=== PATIENT | female | born 1990 | race Caucasian/White ===

== ENCOUNTER 2018-01-02 23:25 | Emergency (ER) | payer SELFPAY ==
[2018-01-03] MEDS ORDERED: NA CHLORIDE 0.9% 1,000 ML ONE ×3 (00:13→07:53)
[2018-01-03 00:35] LABS: Absolute Lymphocytes (CBC) 1.3 K/uL (0.7-4.9); Absolute Monocytes 0.4 K/uL (0.1-1.3); Absolute Neutrophil 6.4 K/uL (1.8-8.0); Basophils % 0.7 % (0-1.3); Eosinophils % 0.9 % (0-4.4); Lymphocytes % 15.4 % (15.3-44.8); MCH 31.1 pg (27.0-35.0); MCV 95.8 fL (80-100); MPV 8.7 fL (7.6-11.3); RBC Red Blood Cell Count 1.81 M/uL (3.86-4.86)
[2018-01-03 00:37] LABS: Protime INR 1.6
[2018-01-03 00:51] LABS: Hematocrit 17.3 % (36.0-45.0)
[2018-01-03 01:06] LABS: ALT/SGPT 25 U/L (12-78); AST/SGOT 119 U/L (15-37); Albumin 2.2 g/dL (3.4-5.0); Alkaline Phosphatase 190 U/L (45-117); BUN Blood Urea Nitrogen 1 mg/dL (7-18); Bicarbonate 27 mmol/L (21-32); Bilirubin Direct 1.8 mg/dL (0-0.2); Bilirubin Total 2.4 mg/dL (0.2-1.0); Glucose Level 72 mg/dL (74-106); Lipase 144 U/L (73-393); Protein, Total 7.5 g/dL (6.4-8.2); Sodium Level 138 mmol/L (136-145)
[2018-01-03 01:08] LABS: Potassium 2.7 mmol/L (3.5-5.1)
[2018-01-03 02:02] LABS: Blood Morphology Comment NOTED (NOT SEEN); Platelet Estimate ADEQ; Urine White Blood Cell Casts OK
[2018-01-03 02:03] LABS: Anisocytosis 1+; Hypochromasia 1+; Polychromasia 1+
[2018-01-03] MEDS ORDERED: FAMOTIDINE 20 MG/2 ML VIAL IV ONE (02:10)
[2018-01-03] MEDS ORDERED: VITAMIN K (ADULT) 10 MG/ML ONE (02:10)
[2018-01-03] MEDS ORDERED: OCTREOTIDE ACETATE 100 MCG/ML ONE (02:15)
[2018-01-03 03:37] LABS: Magnesium 1.7 mg/dL (1.8-2.4)
--- NOTE | 2018-01-03 04:40 | EDPHYS ---
Physician Documentation [facility] Name: Lj Lay Age: 27 yrs Sex: Female : 1990 Arrival Date: 01/02/2018 Time: 23:31 Bed 17 Private MD: ED Physician Shlomo Devi HPI: 01/03 02:18 This 27 yrs old Female presents to ER via EMS with complaints of Abdominal gs Pain, Alcohol Abuse. 02:18 The patient presents with abdominal pain in the epigastric area, thinks it pancreatitis.gs 02:23 Onset: The symptoms/episode began/occurred yesterday. The symptoms do not radiate. gs Associated signs and symptoms: Pertinent positives: vomiting blood, x1 yesterday, Pertinent negatives:. The symptoms are described as crampy. Severity of pain: At its worst the pain was moderate in the emergency department the pain is unchanged. The patient has experienced similar episodes in the past, a few times. 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 - Social history:: Smoking status: Patient uses tobacco products, smokes one pack cigarettes per day. Patient uses alcohol, on a daily basis. patient/guardian reports chronic longstanding heavy alcohol consumption. Patient/guardian denies using street drugs, IV drugs. - Ebola Screening: : Patient denies exposure to infectious person Patient denies travel to an Ebola-affected area in the 21 days before illness onset. ROS: 01/03 02:23 All other systems are negative. gs Exam: 02:23 Constitutional: The patient appears alert, awake, jaundiced gs 04:37 Head/Face: Normocephalic, atraumatic. ENT: Nares patent. No nasal discharge, no gs septal abnormalities noted. Tympanic membranes are normal and external auditory canals are clear. Oropharynx with no redness, swelling, or masses, exudates, or evidence of obstruction, uvula midline. Mucous membranes moist. Neck: Trachea midline, no thyromegaly or masses palpated, and no cervical lymphadenopathy. Supple, full range of motion without nuchal rigidity, or vertebral point tenderness. No Meningismus. Chest/axilla: Normal chest wall appearance and motion. Nontender with no deformity. No lesions are appreciated. Respiratory: Lungs have equal breath sounds bilaterally, clear to auscultation and percussion. No rales, rhonchi or wheezes noted. No increased work of breathing, no retractions or nasal flaring. Back: No spinal tenderness. No costovertebral tenderness. Full range of motion. Skin: Warm, dry with normal turgor. Normal color with no rashes, no lesions, and no evidence of cellulitis. MS/ Extremity: Pulses equal, no cyanosis. Neurovascular intact. Full, normal range of motion. Neuro: Awake and alert, GCS 15, oriented to person, place, time, and situation. Cranial nerves II-XII grossly intact. Motor strength 5/5 in all extremities. Sensory grossly intact. Cerebellar exam normal. Normal gait. 04:37 Eyes: Sclera: icterus, is present. 04:37 Cardiovascular: Rate: tachycardic, Rhythm: regular, Pulses: no pulse deficits are appreciated, Heart sounds: normal, Edema: 1+ edema to level of left ankle and right ankle. 04:37 Abdomen/GI: Inspection: distension, that is mild, Palpation: nontender, in all quadrants. Vital Signs: 01/02 23:34 BP 123 / 88; Pulse 113; Resp 18; Temp 99.7; Pulse Ox 98% on R/A; Weight 90.72 kg; aa1 Height 5 ft. 7 in. (170.18 cm); Pain /10; 01/03 01:17 BP 109 / 63; Pulse 110; Resp 16 S; Pulse Ox 96% on R/A; jd3 02:49 BP 107 / 95; Pulse 107; Resp 19 S; Pulse Ox 97% on 2 lpm NC; jd3 03:49 BP 117 / 74; Pulse 105; Resp 18 S; Pulse Ox 96% on R/A; jd3 05:00 BP 136 / 91; Pulse 130; Resp 17 S; Pulse Ox 99% on R/A; jd3 05:45 BP 132 / 70; Pulse 123; Resp 18 S; Pulse Ox 99% on R/A; jd3 07:00 BP 131 / 93; Pulse 124; Resp 17; Temp 99.6; Pulse Ox 100% ; bp 08:35 BP 111 / 70; Pulse 109; Resp 17; Pulse Ox 98% on R/A; ss 09:15 BP 126 / 71; Pulse 107; Resp 14; Pulse Ox 98% ; bp 10:15 BP 122 / 56; Pulse 96; Resp 12; Pulse Ox 93% on 2 lpm NC; bp 10:55 BP 123 / 58; Pulse 92; Resp 14; Pulse Ox 94% ; bp 01/02 23:34 Body Mass Index 31.32 (90.72 kg, 170.18 cm) aa1 MDM: 01/02 23:41 Patient medically screened. 01/03 04:37 Differential diagnosis: gastritis, Peptic Ulcer Disease, Perf. Gastric Ulcer, bleeding, gs gi. Data reviewed: vital signs, nurses notes. 09:36 ED course: [facility] called, hospitalist wasn't aware of transfer or details, requested rn upgrade to ICU, spoke with Dr. Wallace who accepts transfer. . 01/02 23:53 Order name: Basic Metabolic Panel 01/02 23:53 Order name: CBC with Diff 01/02 23:53 Order name: Hepatic Function; Complete Time: 04:40 01/02 23:53 Order name: Lipase; Complete Time: 04:40 01/02 23:53 Order name: PT-INR; Complete Time: 01:16 01/02 23:53 Order name: ETOH Level; Complete Time: 01:16 01/02 23:54 Order name: Basic Metabolic Panel; Complete Time: 04:40 [facility] 01/02 23:54 Order name: CBC with Automated Diff; Complete Time: 02:08 [facility] 01/03 00:52 Order name: CBC Smear Scan; Complete Time: 02:08 [facility] 01/03 01:08 Order name: AMMONIA; Complete Time: 09:22 01/03 02:54 Order name: Type And Screen jd3 01/03 03:24 Order name: Packed RBC Leukored -1 [facility] 01/03 03:24 Order name: Magnesium; Complete Time: 04:40 [facility] 01/02 23:53 Order name: IV Saline Lock; Complete Time: 00:13 01/02 23:53 Order name: Labs collected and sent; Complete Time: 00:13 Administered Medications: 00:26 Drug: NS 0.9% 1000 ml Route: IV; Rate: 1 bolus; Site: right antecubital; jd3 02:35 Follow up: Response: No adverse reaction; IV Status: Completed infusion; IV Intake: jd3 1000ml 02:20 Drug: Octreotide 50 mcg Route: IV; Rate: calculated rate; Site: right antecubital; jd3 04:55 Follow up: Response: No adverse reaction; IV Status: Completed infusion jd3 02:20 Drug: Pepcid 20 mg Route: IVP; Site: right antecubital; jd3 04:55 Follow up: Response: No adverse reaction jd3 02:20 Drug: NS 0.9% 1000 ml Route: IV; Rate: 125 ml/hr; Site: right antecubital; jd3 07:00 Follow up: IV Status: Completed infusion; IV Intake: 800ml bp 02:20 Drug: Vitamin K1 10 mg Route: Sub-Q; Site: abdomen; jd3 04:55 Follow up: Response: No adverse reaction jd3 04:53 Drug: Potassium Effervescent Tablet 25 mEq Route: PO; jd3 06:09 Follow up: Response: No adverse reaction jd3 04:53 Drug: Magnesium Sulfate 1 grams Route: IVPB; Infused Over: 1 hrs; Site: right [facility] antecubital; 07:00 Follow up: IV Status: Completed infusion; IV Intake: 100ml bp 07:15 Drug: LORazepam 1 mg Route: IVP; Site: right hand; bp 07:54 Follow up: Response: Anxiety decreased bp 07:52 Drug: NS 0.9% 1000 ml Route: IV; Rate: 1 bolus; Site: right hand; bp 09:10 Follow up: IV Status: Completed infusion; IV Intake: 1000ml bp 07:53 Drug: Ativan 1 mg Route: IVP; Site: right antecubital; bp 07:54 Follow up: Response: Anxiety decreased bp 08:45 Drug: ProTONIX 40 mg Route: IVP; Site: right hand; ss 09:10 Follow up: Response: No adverse reaction bp 09:15 Drug: ProTONIX 8 mg/hr Route: IV; Rate: 25 ml/hr; Site: right hand; bp 10:15 Follow up: IV Status: Infusion continued upon transfer bp 09:15 Drug: Octreotide Infusion (50 mcg/hr) - (Octreotide 500 mcg, NS 0.9% 500 ml) Route: IV; bp Rate: 50 ml/hr; Site: right antecubital; 10:15 Follow up: IV Status: Infusion continued upon transfer bp 09:30 Drug: Rocephin - (cefTRIAXone) 1 grams Route: IVPB; Infused Over: 30 mins; Site: right bp antecubital; 10:00 Follow up: IV Status: Completed infusion; IV Intake: 100ml bp Disposition: 01/03/18 04:[address] [facility]. Diagnosis are Gastrointestinal hemorrhage, unspecified, Alcoholic cirrhosis of liver without ascites. - Reason for transfer: Higher level of care. - Accepting physician is Dr. Wallace. - Condition is Stable. - Problem is new. - Symptoms have improved. Signatures: Dispatcher [employer] EDFL Theresa Velasco, RN RN aa1 Shlomo Devi MD MD rn Smirch, Shelby, RN RN ss Kb Carver MD MD gs Davies, Jonathon, RN RN jd3 Anup Marsh RN RN bp Corrections: (The following items were deleted from the chart) 03:24 01:09 MAGNESIUM+C.LAB.BRZ ordered. [facility] EDFL 09:36 04:40 01/03/2018 04:[address] [facility]. Diagnosis is rn Gastrointestinal hemorrhage, unspecified; Alcoholic cirrhosis of liver without ascites. Reason for transfer: Higher level of care. Accepting physician is tbd. Condition is Stable. Problem is new. Symptoms have improved. 11:36 09:36 01/03/2018 04:[address] [facility]. Diagnosis is bp Gastrointestinal hemorrhage, unspecified; Alcoholic cirrhosis of liver without ascites. Reason for transfer: Higher level of care. Accepting physician is Dr. Wallace. Condition is Stable. Problem is new. Symptoms have improved. rn
--- NOTE | 2018-01-03 04:40 | ER ---
Nurse's Notes [facility] Name: Lj Lay Age: 27 yrs Sex: Female : 1990 Arrival Date: 01/02/2018 Time: 23:31 Bed 17 Private MD: Diagnosis: Gastrointestinal hemorrhage, unspecified;Alcoholic cirrhosis of liver without ascites Presentation: 01/02 23:34 Presenting complaint: Patient states: she has pancreatitis and has been having upper aa1 abd pain for years now and she wants help to stop drinking. Denies thoughts of harming herself or others. [facility] reports pt called a help line earlier today and a police superintendent and 2 hat finisher from [place] responded. Reports that pt stated that the officer and hat finisher that initially responded were making fun of her and made her feel uncomfortable which is why she decided not to come to be evaluated at that time. [facility] [place][note 2] reports they spoke with the officer that initially responded and reports that pt told them as well that she did not have any thoughts of harming herself or others and just wanted help to stop drinking. Pt reports drinking whiskey today and smells of ETOH. Lesions noted to BUE. Transition of care: patient was not received from another setting of care. Onset of symptoms was 2010. Risk Assessment: Do you want to hurt yourself or someone else? Patient reports no desire to harm self or others. Initial Sepsis Screen: Does the patient meet any 2 criteria? HR > 90 bpm. Does the patient have a suspected source of infection? No. Patient's initial sepsis screen is negative. Care prior to arrival: None. 23:34 Method Of Arrival: EMS: [facility] aa1 23:34 Acuity: LAMB[place] 3 aa1 Triage Assessment: 23:34 General: Appears in no apparent distress. comfortable, Behavior is calm, cooperative, aa1 appropriate for age, Smells of alcohol. 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 - Social history:: Smoking status: Patient uses tobacco products, smokes one pack cigarettes per day. Patient uses alcohol, on a daily basis. patient/guardian reports chronic longstanding heavy alcohol consumption. Patient/guardian denies using street drugs, IV drugs. - Ebola Screening: : Patient denies exposure to infectious person Patient denies travel to an Ebola-affected area in the 21 days before illness onset. Screenin:34 Abuse screen: Denies threats or abuse. Nutritional screening: No deficits noted. jd3 Tuberculosis screening: No symptoms or risk factors identified. Fall Risk Ambulatory Aid- None/Bed Rest/Nurse Assist (0 pts). Gait- Normal/Bed Rest/Wheelchair (0 pts) Mental Status- Oriented to own ability (0 pts). Total [place] Fall Scale indicates No Risk (0-24 pts). Assessment: 23:31 General: Appears uncomfortable, Behavior is calm, cooperative, appropriate for age, jd3 Smells of alcohol. Pain: Complains of pain in abdomen Quality of pain is described as aching, crampy. Neuro: Level of Consciousness is awake, alert, obeys commands, Oriented to person, place, time, situation, Appropriate for age. Cardiovascular: Capillary refill < 3 seconds Patient's skin is warm and dry. Respiratory: Airway is patent Respiratory effort is even, unlabored, Respiratory pattern is regular, symmetrical, Breath sounds are clear bilaterally. GI: Abdomen is round non-distended, Bowel sounds present X 4 quads. Abd is soft and non tender X 4 quads. Reports lower abdominal pain, upper abdominal pain, nausea, vomiting. : No signs and/or symptoms were reported regarding the genitourinary system. EENT: No signs and/or symptoms were reported regarding the EENT system. Derm: Skin is intact, Skin is dry, Skin is jaundiced, Skin temperature is warm. Musculoskeletal: Circulation, motion, and sensation intact. Range of motion: intact in all extremities. 01/03 00:30 Reassessment: Patient appears in no apparent distress at this time. Patient and/or jd3 family updated on plan of care and expected duration. Pain level reassessed. Patient is alert, oriented x 3, equal unlabored respirations, skin warm/dry/pink. 01:16 Reassessment: Patient appears in no apparent distress at this time. Patient and/or jd3 family updated on plan of care and expected duration. Pain level reassessed. Patient is alert, oriented x 3, equal unlabored respirations, skin warm/dry/pink. 02:49 Reassessment: Patient appears in no apparent distress at this time. Patient and/or jd3 family updated on plan of care and expected duration. Pain level reassessed. Patient is alert, oriented x 3, equal unlabored respirations, skin warm/dry/pink. 03:48 Reassessment: Patient appears in no apparent distress at this time. Patient and/or jd3 family updated on plan of care and expected duration. Pain level reassessed. Patient is alert, oriented x 3, equal unlabored respirations, skin warm/dry/pink. pt requesting for family to be at bedside before signing blood consent. awaiting families arrival. 04:45 Reassessment: Patient appears in no apparent distress at this time. Patient and/or jd3 family updated on plan of care and expected duration. Pain level reassessed. Patient is alert, oriented x 3, equal unlabored respirations, skin warm/dry/pink. 05:35 Reassessment: blood administration started, see blood administration flow sheet. jd3 05:45 Reassessment: Patient appears in no apparent distress at this time. Patient and/or jd3 family updated on plan of care and expected duration. Pain level reassessed. Patient is alert, oriented x 3, equal unlabored respirations, skin warm/dry/pink. 07:00 Reassessment: RECD REPORT FROM LUANNE WING. 27YO WF P/W ETOH ABUSE AND HEMATEMESIS. bp PRBC INFUSION IN PROCESS, TRANFER TO [facility] PENDING. ST ON MONITOR, + ANXIETY. 08:30 Reassessment: PRBC COMPLETED. VS IMPROVED, TRANSFER PENDING. bp 10:54 Reassessment: REPORT TO TIFFANI WING AT [facility]. TRANSPORT PENDING. bp 11:09 Reassessment: EMS AT B/S FOR TRANSPORT. bp Vital Signs: 01/02 23:34 BP 123 / 88; Pulse 113; Resp 18; Temp 99.7; Pulse Ox 98% on R/A; Weight 90.72 kg; aa1 Height 5 ft. 7 in. (170.18 cm); Pain 8/10; 01/03 01:17 BP 109 / 63; Pulse 110; Resp 16 S; Pulse Ox 96% on R/A; jd3 02:49 BP 107 / 95; Pulse 107; Resp 19 S; Pulse Ox 97% on 2 lpm NC; jd3 03:49 BP 117 / 74; Pulse 105; Resp 18 S; Pulse Ox 96% on R/A; jd3 05:00 BP 136 / 91; Pulse 130; Resp 17 S; Pulse Ox 99% on R/A; jd3 05:45 BP 132 / 70; Pulse 123; Resp 18 S; Pulse Ox 99% on R/A; jd3 07:00 BP 131 / 93; Pulse 124; Resp 17; Temp 99.6; Pulse Ox 100% ; bp 08:35 BP 111 / 70; Pulse 109; Resp 17; Pulse Ox 98% on R/A; ss 09:15 BP 126 / 71; Pulse 107; Resp 14; Pulse Ox 98% ; bp 10:15 BP 122 / 56; Pulse 96; Resp 12; Pulse Ox 93% on 2 lpm NC; bp 10:55 BP 123 / 58; Pulse 92; Resp 14; Pulse Ox 94% ; bp 01/02 23:34 Body Mass Index 31.32 (90.72 kg, 170.18 cm) aa1 ED Course: 01/02 23:31 Patient arrived in ED. jd3 23:33 Patient has correct armband on for positive identification. Placed in gown. Bed in low jd3 position. Call light in reach. Side rails up X 1. 23:35 Kb Carver MD is Attending Physician. gs 23:40 Triage completed. aa1 23:40 Jean Claude Ospina RN is Primary Nurse. jd3 23:40 Arm band placed on. jd3 01/03 00:10 Inserted saline lock: 22 gauge in right antecubital area, using aseptic technique. ds4 Blood collected. 00:13 Lipase Sent. ds4 00:13 Hepatic Function Sent. ds4 00:13 CBC with Diff Sent. ds4 00:13 Basic Metabolic Panel Sent. ds4 00:13 PT-INR Sent. ds4 00:13 ETOH Level Sent. ds4 00:13 Basic Metabolic Panel Sent. ds4 00:13 CBC with Automated Diff Sent. ds4 01:08 Notified ED physician of a critical lab result(s). potassium of 2.7 Dr Carver notified. bb 04:31 Warm blanket given. jd3 07:10 Report given to Anup WING. jd3 07:15 Inserted saline lock: 20 gauge in right hand, using aseptic technique. bp 07:34 Primary Nurse role handed off by Jean Claude Ospina RN bp 07:34 Anup Marsh, RN is Primary Nurse. bp 09:51 Attending Physician role handed off by Kb Carver MD rn 09:51 Shlomo Devi MD is Attending Physician. rn 10:19 No provider procedures requiring assistance completed. Patient transferred, IV remains bp in place. 10:31 Report given to TIFFANI WING, [facility], [address] [place] [address], BED 7214. bp Administered Medications: 00:26 Drug: NS 0.9% 1000 ml Route: IV; Rate: 1 bolus; Site: right antecubital; jd3 02:35 Follow up: Response: No adverse reaction; IV Status: Completed infusion; IV Intake: jd3 1000ml 02:20 Drug: Octreotide 50 mcg Route: IV; Rate: calculated rate; Site: right antecubital; jd3 04:55 Follow up: Response: No adverse reaction; IV Status: Completed infusion jd3 02:20 Drug: Pepcid 20 mg Route: IVP; Site: right antecubital; jd3 04:55 Follow up: Response: No adverse reaction jd3 02:20 Drug: NS 0.9% 1000 ml Route: IV; Rate: 125 ml/hr; Site: right antecubital; jd3 07:00 Follow up: IV Status: Completed infusion; IV Intake: 800ml bp 02:20 Drug: Vitamin K1 10 mg Route: Sub-Q; Site: abdomen; jd3 04:55 Follow up: Response: No adverse reaction jd3 04:53 Drug: Potassium Effervescent Tablet 25 mEq Route: PO; jd3 06:09 Follow up: Response: No adverse reaction jd3 04:53 Drug: Magnesium Sulfate 1 grams Route: IVPB; Infused Over: 1 hrs; Site: right jd3 antecubital; 07:00 Follow up: IV Status: Completed infusion; IV Intake: 100ml bp 07:15 Drug: LORazepam 1 mg Route: IVP; Site: right hand; bp 07:54 Follow up: Response: Anxiety decreased bp 07:52 Drug: NS 0.9% 1000 ml Route: IV; Rate: 1 bolus; Site: right hand; bp 09:10 Follow up: IV Status: Completed infusion; IV Intake: 1000ml bp 07:53 Drug: Ativan 1 mg Route: IVP; Site: right antecubital; bp 07:54 Follow up: Response: Anxiety decreased bp 08:45 Drug: ProTONIX 40 mg Route: IVP; Site: right hand; ss 09:10 Follow up: Response: No adverse reaction bp 09:15 Drug: ProTONIX 8 mg/hr Route: IV; Rate: 25 ml/hr; Site: right hand; bp 10:15 Follow up: IV Status: Infusion continued upon transfer bp 09:15 Drug: Octreotide Infusion (50 mcg/hr) - (Octreotide 500 mcg, NS 0.9% 500 ml) Route: IV; bp Rate: 50 ml/hr; Site: right antecubital; 10:15 Follow up: IV Status: Infusion continued upon transfer bp 09:30 Drug: Rocephin - (cefTRIAXone) 1 grams Route: IVPB; Infused Over: 30 mins; Site: right bp antecubital; 10:00 Follow up: IV Status: Completed infusion; IV Intake: 100ml bp Intake: 02:35 IV: 1000ml; Total: 1000ml. jd3 07:00 IV: 800ml; Total: 1800ml. bp 07:00 IV: 100ml; Total: 1900ml. bp 09:10 IV: 1000ml; Total: 2900ml. bp 10:00 IV: 100ml; Total: 3000ml. bp Outcome: 04:40 ER care complete, transfer ordered by MD. gs 10:20 Condition: stable bp 10:20 Instructed on the need for transfer. 10:32 Transferred to [facility], Transfer form completed. bp 11:36 Patient left the ED. bp Signatures: Theresa Velasco RN RN aa1 Nola Prescott RN RN bb Shlomo Devi MD MD rn Smirch, Shelby, RN RN ss Demetrio Zhong ds4 Kb Carver MD MD gs Davies, Jonathon, RN RN jd3 Anup Marsh RN RN bp Corrections: (The following items were deleted from the chart) 01:17 01/02 23:31 General: Appears uncomfortable, Behavior is calm, cooperative, appropriate jd3 for age, jd3 01/03 01:17 01/02 23:31 Derm: Skin is intact, Skin is dry, Skin is normal, Skin temperature is warm jd3 jd3 01/03 03:50 03:48 Reassessment: Patient appears in no apparent distress at this time. Patient jd3 and/or family updated on plan of care and expected duration. Pain level reassessed. Patient is alert, oriented x 3, equal unlabored respirations, skin warm/dry/pink. jd3
[2018-01-03] MEDS ORDERED: POTASSIUM 25 MEQ EFFERV TAB ONE (04:54)
[2018-01-03] MEDS ORDERED: MAGNESIUM SULFATE 1 gm IVPB 1 GM/100 ML BAG IV ONE (04:55)
[2018-01-03] MEDS ORDERED: NA CHLORIDE 0.9% 250 ML ONE (05:18)
[2018-01-03] MEDS ORDERED: LORazepam 2 MG/ML VIAL ONE ×2 (07:18→07:53)
[2018-01-03] MEDS ORDERED: PANTOPRAZOLE 40 MG INJ ONE (08:48)
[2018-01-03] MEDS ORDERED: PANTOPRAZOLE INJ 80 MG in NA CHLORIDE 0.9% 250 ML IV ONE (09:00)
[2018-01-03] MEDS ORDERED: OCTREOTIDE 500 MCG in NA CHLORIDE 0.9% 500 ML IV ONE (09:00)
[2018-01-03] MEDS ORDERED: NA CHLORIDE 0.9% 100 ML IV ONE (09:50)
[2018-01-03] MEDS ORDERED: CEFTRIAXONE 1000 MG/VIAL ONE (09:50)
== END 2018-01-03 11:36 | disposition short-term general hospital (02) ==
LOC: ER 23:25
DX: K92.2 Gastrointestinal hemorrhage, unspecified (principal); K70.30 Alcoholic cirrhosis of liver without ascites; F17.210 Nicotine dependence, cigarettes, uncomplicated
CPT/HCPCS: 36415; 80048; 80076; 80320; 82140; 83690; 83735; 85025; 85610; 86850; 86900; 86901; 96372; 99285; C9113; J2354; J3430; J3475; J7030; P9016

== ENCOUNTER 2018-01-24 16:38 | Emergency (ER) | payer SELFPAY ==
--- OUTSIDE RECORDS SUMMARY | 2018-01-24 16:42 | XMS REPORT | Clinical Summary ---
:1990 Author Organization [facility] Address [address] [place] [address] Care Team Providers Name Role Phone Pcp, No Primary Care Provider Unavailable Allergies No Known Allergies Medications Medication Sig Dispensed Refills Start Date End Date Status folic acid Take 1 mg by 0 Active (FOLVITE) 1 MG mouth daily. tablet HYDROcodone-acetam Take 1 tablet 30 tablet 0 01/08/2018 Active inophen (NORCO by mouth every 10-325) 10-325 mg 8 (eight) hours per tablet as needed for up to 10 doses. Max Daily Amount: [address] 1 patch 30 patch 0 01/08/2018 02/07/2018 Active (LIDODERM) 5 % onto the skin patch daily for 30 days Remove & Discard patch within 12 hours or as directed by MD. multivitamin Take 1 tablet 30 tablet 11 01/09/2018 01/09/2019 Active (THERAGRAN) tablet by mouth daily. nicotine (NICODERM Place 1 patch 30 patch 0 01/09/2018 02/08/2018 Active CQ) 21 mg/24 hr onto the skin patch daily for 30 days. thiamine 100 MG Take 1 tablet 90 tablet 3 01/09/2018 01/09/2019 Active tablet (100 mg total) by mouth daily. LORazepam (ATIVAN) Take 1 tablet 10 tablet 0 01/08/2018 Active 1 MG tablet (1 mg total) by mouth every 8 (eight) hours as needed for Anxiety for up to 10 doses. Max Daily Amount: 3 mg LORazepam (ATIVAN) Take 1 tablet 30 tablet 0 01/08/2018 01/08/2018 Discontinued 1 MG tablet (1 mg total) by mouth every 8 (eight) hours as needed for Anxiety for up to 10 doses. Max Daily Amount: 3 mg neomycin-bacitraci Apply topically 60 g 0 01/08/2018 01/18/2018 n-polymyxin 2 (two) times (NEOSPORIN) daily for 10 3.5mg-400 unit- days. 5,000 unit/gram ointment Active Problems Problem Noted Date ETOH abuse 01/05/2018 Tobacco abuse 01/05/2018 GIB (gastrointestinal bleeding) 01/03/2018 Anemia associated with acute blood loss 01/03/2018 Alcoholic hepatitis without ascites 01/03/2018 Hematemesis 01/03/2018 Encounters Date Type Specialty Care Team Description 01/08/2018 Surgery Gastroenterology Tanesha Earl UPPER ENDOSCOPY MD [place] 01/08/2018 Anesthesia Event Gastroenterology Suki Spann CRNA 01/03/2018 [facility] [place], Anemia associated with acute blood loss; - Encounter Medicine Duane Alcoholic hepatitis without ascites; 01/08/2018 MD Pio Gastrointestinal hemorrhage with hematemesis; Pablo Broderick, Thrombocytopenia (HCC); Alcohol withdrawal syndrome without complication (HCC); Avelino Goode MD ETOH abuse; Rectal bleeding 01/03/2018 Travel 01/03/2018 Telephone Critical Care Medicine Rodrigo, Ayvp-ii-Iqik Call Duane Suero MD 01/03/2018 Telephone Gastroenterology Tanesha Earl Abdominal Pain MD Bernadine after 01/23/2017 Social History Tobacco Use Types Packs/Day Years Used Date Current Every Day Smoker Cigarettes 0.5 13 Started: 2004 Smokeless Tobacco: Current User Tobacco Cessation: Ready to Quit: No; Counseling Given: No Alcohol Use Drinks/Week oz/Week Comments Yes Alcohol Habits Answer Date Recorded How often do you have a drink containing 4 or more times a week 01/03/2018 alcohol? How many drinks containing alcohol do you have Not asked on a typical day when you are drinking? How often do you have six or more drinks on one Weekly 01/03/2018 occasion? Financial Resource Strain Answer Date Recorded How hard is it for you to pay for the very basics like food, Very hard 2017 housing, medical care, and heating? Food Insecurity Answer Date Recorded Within the past 12 months, you worried that your food would Often true 2017 run out before you got money to buy more. Within the past 12 months, the food you bought just didn't Often true 2017 last and you didn't have money to get more. Transportation Needs Answer Date Recorded In the past 12 months, has lack of transportation kept you from Yes 2017 medical appointments or from getting medications? In the past 12 months, has lack of transportation kept you from Yes 2017 meetings, work, or getting things needed for daily living? Sex Assigned at Date Recorded Not on file Job Start Date Occupation Industry Not on file Not on file Not on file Travel History Travel Start Travel End No recent travel history available. Last Filed Vital Signs Vital Sign Reading Time Taken Blood Pressure 118/75 01/08/2018 5:29 PM DISTRICT AGENT Pulse 109 01/08/2018 5:29 PM DISTRICT AGENT Temperature 37.1 C (98.7 F) 01/08/2018 5:29 PM DISTRICT AGENT Respiratory Rate 19 01/08/2018 5:29 PM DISTRICT AGENT Oxygen Saturation 96% 01/08/2018 5:29 PM DISTRICT AGENT Inhaled Oxygen Concentration - - Weight 71.2 kg (157 lb) 01/06/2018 4:56 AM DISTRICT AGENT Height 170.2 cm (5' 7") 01/03/2018 1:45 PM DISTRICT AGENT Body Mass Index 24.59 01/06/2018 4:56 AM DISTRICT AGENT Plan of Treatment Not on file Procedures Procedure Name Priority Date/Time Associated Diagnosis Comments RHYTHM STRIP - SCAN 01/12/2018 12:10 PM DISTRICT AGENT COLONOSCOPY 01/08/2018 5:04 Gastrointestinal PM DISTRICT AGENT hemorrhage, unspecified gastrointestinal hemorrhage type UPPER ENDOSCOPY 01/08/2018 5:04 Gastrointestinal PM DISTRICT AGENT hemorrhage, unspecified gastrointestinal hemorrhage type REPORT OF PROCEDURE - 01/08/2018 4:20 ENDOSCOPY URL PM DISTRICT AGENT REPORT OF PROCEDURE - 01/08/2018 4:14 ENDOSCOPY URL PM DISTRICT AGENT POCT-GLUCOSE METER Routine 01/08/2018 3:34 Results for this PM DISTRICT AGENT procedure are in the results section. POCT-GLUCOSE METER Routine 01/08/2018 1:17 Results for this PM DISTRICT AGENT procedure are in the results section. PHOSPHORUS Routine 01/08/2018 8:50 Results for this AM DISTRICT AGENT procedure are in the results section. BILIRUBIN, DIRECT Routine 01/08/2018 8:50 Results for this AM DISTRICT AGENT procedure are in the results section. COMPREHENSIVE Routine 01/08/2018 8:50 Results for this METABOLIC PANEL AM DISTRICT AGENT procedure are in the results section. POCT-GLUCOSE METER Routine 01/08/2018 6:42 Results for this AM DISTRICT AGENT procedure are in the results section. CBC W/PLT COUNT & Routine 01/08/2018 6:19 Results for this AUTO DIFFERENTIAL AM DISTRICT AGENT procedure are in the results section. CBC W/PLT COUNT & Routine 01/08/2018 6:19 Results for this AUTO DIFFERENTIAL AM DISTRICT AGENT procedure are in the results section. POCT-GLUCOSE METER Routine 01/07/2018 6:59 Results for this PM DISTRICT AGENT procedure are in the results section. POCT-GLUCOSE METER Routine 01/07/2018 1:37 Results for this PM DISTRICT AGENT procedure are in the results section. CBC W/PLT COUNT & Routine 01/07/2018 9:17 Results for this AUTO DIFFERENTIAL AM DISTRICT AGENT procedure are in the results section. CBC W/PLT COUNT & Routine 01/07/2018 9:17 Results for this AUTO DIFFERENTIAL AM DISTRICT AGENT procedure are in the results section. PHOSPHORUS Routine 01/07/2018 9:17 Results for this AM DISTRICT AGENT procedure are in the results section. BILIRUBIN, DIRECT Routine 01/07/2018 9:17 Results for this AM DISTRICT AGENT procedure are in the results section. COMPREHENSIVE Routine 01/07/2018 9:17 Results for this METABOLIC PANEL AM DISTRICT AGENT procedure are in the results section. POCT-GLUCOSE METER Routine 01/06/2018 11:27 Results for this AM DISTRICT AGENT procedure are in the results section. CBC W/PLT COUNT & Routine 01/06/2018 5:07 Results for this AUTO DIFFERENTIAL AM DISTRICT AGENT procedure are in the results section. CBC W/PLT COUNT & Routine 01/06/2018 5:07 Results for this AUTO DIFFERENTIAL AM DISTRICT AGENT procedure are in the results section. PHOSPHORUS Routine 01/06/2018 5:07 Results for this AM DISTRICT AGENT procedure are in the results section. BILIRUBIN, DIRECT Routine 01/06/2018 5:07 Results for this AM DISTRICT AGENT procedure are in the results section. PROTHROMBIN TIME/INR Routine 01/06/2018 5:07 Results for this AM DISTRICT AGENT procedure are in the results section. COMPREHENSIVE Routine 01/06/2018 5:07 Results for this METABOLIC PANEL AM DISTRICT AGENT procedure are in the results section. TRANSFUSION SERVICE 01/05/2018 6:02 REPORT - SCAN PM DISTRICT AGENT POCT-GLUCOSE METER Routine 01/05/2018 12:19 Results for this PM DISTRICT [facility]ENT procedure are in the results section. POCT-GLUCOSE METER Routine 01/05/2018 5:59 Results for this AM DISTRICT AGENT procedure are in the results section. CBC W/PLT COUNT & Routine 01/05/2018 4:21 Results for this AUTO DIFFERENTIAL AM DISTRICT AGENT procedure are in the results section. CBC W/PLT COUNT & Routine 01/05/2018 4:21 Results for this AUTO DIFFERENTIAL AM DISTRICT AGENT procedure are in the results section. PHOSPHORUS Routine 01/05/2018 4:21 Results for this AM DISTRICT AGENT procedure are in the results section. BILIRUBIN, DIRECT Routine 01/05/2018 4:21 Results for this AM DISTRICT AGENT procedure are in the results section. PROTHROMBIN TIME/INR Routine 01/05/2018 4:21 Results for this AM DISTRICT AGENT procedure are in the results section. COMPREHENSIVE Routine 01/05/2018 4:21 Results for this METABOLIC PANEL AM DISTRICT [facility]ENT procedure are in the results section. POCT-GLUCOSE METER Routine 01/05/2018 12:24 Results for this AM DISTRICT [facility]ENT procedure are in the results section. PREPARE LEUKO-REDUCED Routine 01/04/2018 11:55 Results for this RBC PM DISTRICT [facility]ENT procedure are in the results section. TRANSFUSION SERVICE 01/04/2018 6:03 REPORT - SCAN PM DISTRICT AGENT POCT-GLUCOSE METER Routine 01/04/2018 5:58 Results for this PM DISTRICT [facility]ENT procedure are in the results section. MAGNESIUM Routine 01/04/2018 5:03 Results for this PM DISTRICT [facility]ENT procedure are in the results section. POTASSIUM Routine 01/04/2018 5:03 Results for this PM [facility] procedure are in the results section. CBC W/PLT COUNT & STAT 01/04/2018 4:03 Results for this AUTO DIFFERENTIAL PM DISTRICT [facility]ENT procedure are in the results section. VITAMIN B12 AND Routine 01/04/2018 4:03 Results for this FOLATE PM DISTRICT [facility]ENT procedure are in the results section. MAGNESIUM Routine 01/04/2018 4:03 Results for this PM [facility] procedure are in the results section. CBC W/PLT COUNT & STAT 01/04/2018 4:03 Results for this AUTO DIFFERENTIAL PM DISTRICT [facility]ENT procedure are in the results section. URINALYSIS W/ REFLEX Routine 01/04/2018 4:02 Results for this URINE CULTURE PM DISTRICT [facility]ENT procedure are in the results section. POCT-GLUCOSE METER Routine 01/04/2018 11:28 Results for this AM DISTRICT [facility]ENT procedure are in the results section. RAPID DRUG SCREEN, Routine 01/04/2018 8:40 Results for this URINE AM DISTRICT [facility]ENT procedure are in the results section. SCREEN, Routine 01/04/2018 8:38 Results for this URINE AM DISTRICT [facility]ENT procedure are in the results section. POCT-GLUCOSE METER Routine 01/04/2018 5:56 Results for this AM DISTRICT [facility]ENT procedure are in the results section. CBC W/PLT COUNT & STAT 01/04/2018 3:46 Results for this AUTO DIFFERENTIAL AM DISTRICT [facility]ENT procedure are in the results section. MAGNESIUM Routine 01/04/2018 3:46 Results for this AM DISTRICT [facility] procedure are in the results section. CBC W/PLT COUNT & STAT 01/04/2018 3:46 Results for this AUTO DIFFERENTIAL AM DISTRICT [facility]ENT procedure are in the results section. HEPATITIS A ANTIBODY, Routine 01/04/2018 3:46 Results for this IGM AM DISTRICT [facility]ENT procedure are in the results section. HEPATITIS A ANTIBODY, Routine 01/04/2018 3:46 Results for this IGG AM DISTRICT [facility]ENT procedure are in the results section. HEPATITIS B SURFACE Routine 01/04/2018 3:46 Results for this ANTIGEN AM [facility]ENT procedure are in the results section. HEPATITIS B SURFACE Routine 01/04/2018 3:46 Results for this ANTIBODY AM DISTRICT [facility]ENT procedure are in the results section. HEPATITIS B CORE Routine 01/04/2018 3:46 Results for this ANTIBODY, TOTAL AM [facility] procedure are in the results section. HEPATITIS C ANTIBODY Routine 01/04/2018 3:46 Results for this AM DISTRICT [facility] procedure are in the results section. PROTHROMBIN TIME/INR Routine 01/04/2018 3:46 Results for this AM DISTRICT [facility] procedure are in the results section. COMPREHENSIVE Routine 01/04/2018 3:46 Results for this METABOLIC PANEL AM DISTRICT [facility]ENT procedure are in the results section. CBC W/PLT COUNT & STAT 01/04/2018 12:06 Results for this AUTO DIFFERENTIAL AM DISTRICT [facility]ENT procedure are in the results section. CBC W/PLT COUNT & STAT 01/04/2018 12:06 Results for this AUTO DIFFERENTIAL AM DISTRICT [facility]ENT procedure are in the results section. POCT-GLUCOSE METER Routine 01/03/2018 11:42 Results for this PM [facility] procedure are in the results section. TRANSFUSE Routine 01/03/2018 7:35 LEUKO-REDUCED RED PM DISTRICT [facility]ENT BLOOD CELLS POCT-GLUCOSE METER Routine 01/03/2018 6:27 Results for this PM [facility] procedure are in the results section. US ABDOMEN LIMITED GRADY 01/03/2018 2:45 Results for this PM [facility] procedure are in the results section. CBC W/PLT COUNT & STAT 01/03/2018 1:37 Results for this AUTO DIFFERENTIAL PM [facility]ENT procedure are in the results section. TYPE AND SCREEN, Routine 01/03/2018 1:37 Results for this AUTOMATED PM [facility] procedure are in the results section. MAGNESIUM STAT 01/03/2018 1:37 Results for this PM [facility] procedure are in the results section. PT/APTT STAT 01/03/2018 1:37 Results for this PM [facility] procedure are in the results section. LIPASE STAT 01/03/2018 1:37 Results for this PM [facility] procedure are in the results section. COMPREHENSIVE STAT 01/03/2018 1:37 Results for this METABOLIC PANEL PM [facility]ENT procedure are in the results section. CBC W/PLT COUNT & STAT 01/03/2018 1:37 Results for this AUTO DIFFERENTIAL PM [facility]ENT procedure are in the results section. after 01/23/2017 Results RHYTHM STRIP - SCAN (01/12/2018 12:10 PM DISTRICT AGENT) Narrative Performed At REPORT OF PROCEDURE - ENDOSCOPY URL (01/08/2018 4:20 PM DISTRICT AGENT) Narrative Performed At REPORT OF PROCEDURE - ENDOSCOPY URL (01/08/2018 4:14 PM DISTRICT AGENT) Narrative Performed At POC-Glucose meter (01/08/2018 3:34 PM DISTRICT AGENT)Only the most recent of14 resultswithin the time period is included. POC-Glucose Meter 87Comment: TESTED AT 70 - 110 mg/dL [address] [address] Specimen Blood Performing Organization Address [facility] Phone Number [address] [address] CENTER Phosphorus (01/08/2018 8:50 AM DISTRICT AGENT)Only the most recent of4 resultswithin the time period is included. Phosphorus 3.9 2.3 - 4.7 mg/dL [facility] Specimen Blood - Arm, Right Performing Organization Address [facility] Phone Number [address] [address] CENTER Bilirubin, direct (01/08/2018 8:50 AM DISTRICT AGENT)Only the most recent of4 resultswithin the time period is included. Bilirubin, Direct 1.9 (H) 0.1 - 0.5 mg/dL [facility] Specimen Blood - Arm, Right Performing Organization Address [facility]/Zipcode Phone Number [facility] [address] [place] [address] CENTER Comprehensive metabolic panel (01/08/2018 8:50 AM DISTRICT AGENT)Only the most recent of6 resultswithin the time period is included. [facility], Total 6.6 6.0 - 8.3 gm/dL [facility] Albumin 2.3 (L) 3.5 - 5.0 g/dL [facility] Alkaline Phosphatase 122 40 - 150 U/L [facility] Total Bilirubin 2.9 (H) 0.2 - 1.2 mg/dL [facility] Sodium 137 136 - 145 meq/L [facility] Potassium 3.5 3.5 - 5.1 meq/L [facility] Chloride 105 98 - 107 meq/L [facility] CO2 26 22 - 29 meq/L [facility] BUN 2 (L) 7 - 21 mg/dL [facility] Creatinine 0.52 (L) 0.57 - 1.25 mg/dL [facility] Glucose 70 70 - 105 mg/dL [facility] Calcium 8.5 8.4 - 10.2 mg/dL [facility] AST 56 (H) 5 - 34 U/L [facility] ALT 12 6 - 55 U/L [facility] EGFR 143Comment: ESTIMATED mL/min/1.73 sq m [facility] GFR IS NOT ACCURATE [facility] CREATININE CLEARANCE IN PREDICTING GLOMERULAR FILTRATION RATE. ESTIMATED GFR IS NOT APPLICABLE FOR DIALYSIS PATIENTS. Specimen Blood - Arm, Right Narrative Performed At Specimen slightly icteric [facility] Performing Organization Address City/[facility]/Zipcode Phone Number [facility] [address] [place] [address] CENTER CBC with platelet count + automated diff (01/08/2018 6:19 AM DISTRICT AGENT)Only the most recent of8 resultswithin the time period is included. WBC 4.0 3.5 - 10.5 K/L [facility] RBC 2.45 (L) 3.93 - 5.22 M/L [facility] Hemoglobin 7.6 (L) 11.2 - 15.7 GM/DL [facility] Hematocrit 24.9 (L) 34.1 - 44.9 % [facility] MCV 101.6 (H) 79.4 - 94.8 fL [facility] MCH 31.0 25.6 - 32.2 pg [facility] MCHC 30.5 (L) 32.2 - 35.5 GM/DL [facility] RDW 21.2 (H) 11.7 - 14.4 % [facility] Platelets 104 (L) 150 - 450 K/CU MM [facility] MPV 11.0 9.4 - 12.3 fL [facility] nRBC 0 0 - 0 /100 WBC [facility] % Neutros 63 % [facility] % Lymphs 23 % [facility] % Monos 9 % [facility] % Eos 4 % [facility] % Baso 1 % [facility] # Neutros 2.51 1.56 - 6.13 K/L [facility] # Lymphs 0.93 (L) 1.18 - 3.74 K/L [facility] # Monos 0.34 0.24 - 0.36 K/L [facility] # Eos 0.15 0.04 - 0.36 K/L [facility] # Baso 0.03 0.01 - 0.08 K/L [facility] Immature 0 0 - 1 % [facility] Specimen Blood - Arm, Right Performing Organization Address City/State/Zipcode Phone Number [address] [address] [place] Prothrombin time/INR (01/06/2018 5:07 AM DISTRICT AGENT)Only the most recent of3 resultswithin the time period is included. Protime 18.2 (H) 11.7 - 14.7 seconds [facility] INR 1.5 <=5.9 [facility] Specimen Blood - Arm, Left Narrative Performed At RECOMMENDED COUMADIN/WARFARIN INR THERAPY [facility] RANGES STANDARD DOSE: 2.0 - 3.0 Includes: PROPHYLAXIS for venous thrombosis, systemic embolization; TREATMENT for venous thrombosis and/or pulmonary embolus. HIGH RISK: Target INR is 2.5-3.5 for patients with mechanical heart valves. Performing Organization Address City/[facility] Phone Number [address] [address] [phone] [place] TRANSFUSION SERVICE REPORT - SCAN (01/05/2018 6:02 PM DISTRICT AGENT)Only the most recent of2 resultswithin the time period is included. Narrative Performed At Prepare Leuko-Red RBC (01/04/2018 11:55 PM DISTRICT AGENT) CROSSMATCH COMPATIBLE SAFETRACE TX Unit ABO B Pos SAFETRACE TX UNIT NUMBER [id number] SAFETRACE TX Status TRANSFUSED SAFETRACE TX Blood Bank Product RED BLOOD CELLS SAFETRACE TX PRODUCT CODE [id number] SAFETRACE TX CROSSMATCH COMPATIBLE SAFETRACE TX Unit ABO B Pos SAFETRACE TX UNIT NUMBER [id number] SAFETRACE TX Status READY SAFETRACE TX Blood Bank Product RED BLOOD CELLS SAFETRACE TX PRODUCT CODE [id number] SAFETRACE TX Specimen Other Performing Organization Address City/State[facility] Phone Number SAFETRACE [place] Potassium (01/04/2018 5:03 PM DISTRICT AGENT) Potassium 3.6 3.5 - 5.1 meq/L [facility] Specimen Blood - Arm, Left Performing Organization Address [facility] Phone Number [address] [address] [phone] CENTER Magnesium (01/04/2018 5:03 PM DISTRICT AGENT)Only the most recent of4 resultswithin the time period is included. Magnesium 2.5 1.6 - 2.6 mg/dL [facility] Specimen Blood - Arm, Left Performing Organization Address [facility] Phone Number [address] [address] [phone] [place] Vitamin B12 and Folate (01/04/2018 4:03 PM DISTRICT AGENT) Vitamin B12 767 213 - 816 pg/mL [facility] Folate 11.4 >=7.0 ng/mL [facility] Specimen Blood - Line, Venous Performing Organization Address [facility] Phone Number [address] [address] [place] Urinalysis w/Microscopic + Reflex to Culture (01/04/2018 4:02 PM DISTRICT AGENT) Color, UA Jaida [facility] Clarity, UA Hazy [facility] Specific [place], UA 1.028 1.001 - 1.035 [facility] pH, UA 6.0 5.0 - 8.0 [facility] Protein, UA 70 mg/dL (A) Negative [facility] Glucose, UA Negative Negative [facility] Ketones, UA Negative Negative [facility] Bilirubin, UA Positive (A) Negative [facility] Blood, UA Trace (A) Negative [facility] Nitrite, UA Negative Negative [facility] Leukocytes, UA Negative Negative [facility] Urobilinogen, UA 0.2 0.2 - 1.0 mg/dL [facility] RBC, UA <1 /HPF [facility] WBC, UA 2 /HPF [facility] Mucus Few [facility] Squam Epithel, UA 11 /HPF [facility] Hyaline Casts, UA 2 /LPF [facility] Specimen Source [facility] Specimen Urine - Urine, Clean Catch Performing Organization Address [facility] Phone Number [facility] [address] [place] [address] CENTER Rapid drug screen, urine (01/04/2018 8:40 AM DISTRICT AGENT) Barbiturate Screen Negative Negative [facility] Benzodiazepine Screen Negative Negative [facility] Cocaine (Metab.) Screen Negative Negative [facility] Methadone Screen Negative Negative [facility] Opiate Screen Positive (A) Negative [facility] Cannabinoid Screen Negative Negative [facility] Amph/Methamph Screen Negative Negative [facility] Phencyclidine Screen Negative Negative [facility] Oxycodone Screen Negative Negative [facility] Specimen Urine Narrative Performed At [facility] CONC. Cocaine 300 ng/mL Hcujpqarrqf79 ng/mL Ehornkmzdjvjzh956 ng/mL Barbiturate 200 ng/mL Qvbixpbeobxpr46 ng/mL Ukjgzg875 ng/mL Methadone 300 ng/mL Amphetamine/ 1000 ng/mL Methamphetamine Oxycodone 300 ng/mL This assay provides an unconfirmed qualitative test result for the clinical management of patients in emergency situations. Chain of custody not maintained. Some obpl-snz-vebmnds medications, as well as adulterants, may cause inaccurate results. Clinical correlation should be applied. A more comprehensive drug screen or confirmation of a detected drug may be performed upon request. Performing Organization Address City/[facility] Phone Number [address] [phone] [place] Screen, urine (01/04/2018 8:38 AM DISTRICT AGENT) Preg Test, Ur Negative [facility] Specimen Urine Performing Organization Address [facility] Phone Number [address] [address] [phone] [place] Hepatitis A antibody, IgG (01/04/2018 3:46 AM DISTRICT AGENT) Hep A IgG Reactive (A) Nonreactive [facility] Specimen Blood Performing Organization Address [facility] Phone Number [address] [address] [place] Hepatitis C antibody (01/04/2018 3:46 AM DISTRICT AGENT) Hepatitis C Ab NON-REACTIVE Nonreactive [facility] Specimen Blood Performing Organization Address [facility] Phone Number [address] [address] [place] Hepatitis A antibody, IgM (01/04/2018 3:46 AM DISTRICT AGENT) Hep A IgM HEPATITIS A TEST NEGATIVE Nonreactive [facility] Specimen Blood Performing Organization Address [facility] Phone Number [address] [address] [place] Hepatitis B core antibody, total (01/04/2018 3:46 AM DISTRICT AGENT) Hep B Core Total Ab NON-REACTIVE Nonreactive [facility] Specimen Blood Performing Organization Address [facility] Phone Number [address] [address] [place] Hepatitis B surface antibody (01/04/2018 3:46 AM DISTRICT AGENT) Hep B S Ab <8.0 <8.0 mIU/mL [facility] Specimen Blood Performing Organization Address City/State/Zipcode Phone Number [facility] [address] [place], [place] [id number] [place] Hepatitis B surface antigen (01/04/2018 3:46 AM DISTRICT AGENT) hepatitis B Surface Ag NON-REACTIVE Nonreactive [facility] Specimen Blood Performing Organization Address [facility]/Zipcode Phone Number [facility] [address] [place] [address] [place] Transfuse Leuko-Red RBC (01/03/2018 7:35 PM DISTRICT AGENT)Only the most recent of2 resultswithin the time period is included.US abdomen limited (01/03/2018 2:45 PM DISTRICT AGENT) Narrative Performed At FINAL REPORT Highlight Right upper quadrant Ultrasound Clinical Diagnosis: Alcohol abuse increased INR thrombocytopenia and cirrhosis Comparison: No comparison Technique: Multiple transaxial and longitudinal images were obtained through the abdomen with real time ultrasonography.MHz transducer was utilized.80 images were submitted for interpretation. Report: Liver: The liver measures 24.5 cm in the right midaxillary line. There are no focal masses.The echogenicity is within normal limits. Spleen: The spleen measures 16.3 cm in the left mid axillary line. Gallbladder: The transverse diameter is for cm.The wall measures two mm.There are shadowing stones visualized. Biliary tree: There is no evidence of intra or extra hepatic biliary ductal dilatation.The common bile duct measures three mm. Portal vein: The portal vein measures 13 mm. Pancreas:The pancreatic tail is not well seen secondary to overlying bowel gas. Ascites: Trace Pleural Effusion: Right trace Right kidney: The right kidney measures 12.2 cm in length no evidence of hydronephrosis. IVC/Aorta: Partially seen segments demonstrate no abnormality. Maximum transverse dimension of aorta is 2.1 cm Impression: Hepatomegaly. Splenomegaly. Mild ascites and trace right effusion. Pericholecystic fluid which may be secondary to hypoproteinemia. Signed: Shena Forrest MD Report Verified Date/Time:01/03/2018 16:54:35 Reading Location: [place] [id number] Ultrasound Reading Room Procedure Note Interface, External Ris In - 01/03/2018 4:56 PM DISTRICT AGENT FINAL REPORT Right upper quadrant Ultrasound Clinical Diagnosis: Alcohol abuse increased INR thrombocytopenia and cirrhosis Comparison: No comparison Technique: Multiple transaxial and longitudinal images were obtained through the abdomen with real time ultrasonography. MHz transducer was utilized. 80 images were submitted for interpretation. Report: Liver: The liver measures 24.5 cm in the right midaxillary line. There are no focal masses. The echogenicity is within normal limits. Spleen: The spleen measures 16.3 cm in the left mid axillary line. Gallbladder: The transverse diameter is for cm. The wall measures two mm. There are shadowing stones visualized. Biliary tree: There is no evidence of intra or extra hepatic biliary ductal dilatation. The common bile duct measures three mm. Portal vein: The portal vein measures 13 mm. Pancreas: The pancreatic tail is not well seen secondary to overlying bowel gas. Ascites: Trace Pleural Effusion: Right trace Right kidney: The right kidney measures 12.2 cm in length no evidence of hydronephrosis. IVC/Aorta: Partially seen segments demonstrate no abnormality. Maximum transverse dimension of aorta is 2.1 cm Impression: Hepatomegaly. Splenomegaly. Mild ascites and trace right effusion. Pericholecystic fluid which may be secondary to hypoproteinemia. Signed: Shena Forrest MD Report Verified Date/Time: 01/03/2018 16:54:35 Reading Location: [place] [id number] Ultrasound Reading Room Performing Organization Address City/[facility]/Zipcode Phone Number RIS Type and screen, automated (01/03/2018 1:37 PM DISTRICT AGENT) ABO/RH AUTOMATED (BEAKER) B POSITIVE [facility] Ab Scrn NEGATIVE [facility] Specimen Blood Performing Organization Address City/[facility]/Zipcode Phone Number [facility] [address] [place] [phone] PT/aPTT (01/03/2018 1:37 PM DISTRICT AGENT) Protime 18.4 (H) 11.7 - 14.7 seconds [facility] INR 1.5 <=5.9 [facility] PTT 45.0 (H) 22.5 - 36.0 seconds [facility] Specimen Blood Narrative Performed At RECOMMENDED COUMADIN/WARFARIN INR THERAPY [facility] RANGES STANDARD DOSE: 2.0 - 3.0 Includes: PROPHYLAXIS for venous thrombosis, systemic embolization; TREATMENT for venous thrombosis and/or pulmonary embolus. HIGH RISK: Target INR is 2.5-3.5 for patients with mechanical heart valves. Performing Organization Address City/State/Zipcode Phone Number [address] [address] [place] Lipase (01/03/2018 1:37 PM DISTRICT AGENT) Lipase 11 8 - 78 U/L [facility] Specimen Blood Narrative Performed At Specimen slightly icteric [facility] Performing Organization Address City/State/Zipcode Phone Number [address] [address] [phone] CENTER after 01/23/2017 Advance Directives For more information, please contact:[address] [phone] Code Status Date Activated Date Inactivated Comments Full Code 01/03/2018 12:55 PM This code status was determined by: Patient
--- OUTSIDE RECORDS SUMMARY | 2018-01-24 16:43 | XMS REPORT ---
:1990 [facility] Address [address] [place] [address] Care Team Providers Name Role Phone AMBREEN LEMA Unavailable Unavailable Problems This patient has no known problems. Allergies, Adverse Reactions, Alerts This patient has no known allergies or adverse reactions. Medications This patient has no known medications. Results Test Description Test Time Test Comments Text Results Atomic Results Result Comments POCT-GLUCOSE METER 2018-01-08 15:35:00 Test Item Value Reference Range Comments POC-GLUCOSE METER (BEAKER) (test 87 mg/dL 70-110 TESTED AT [facility] [address] [facility] kypf=1461) [facility] [address] POCT-GLUCOSE [id number] 13:39:00 Test Item Value Reference Range Comments POC-GLUCOSE METER (BEAKER) 83 mg/dL 70-110 TESTED AT [address] (test otks=0199) [facility] [address] [id number] 09:49:00 Test Item Value Reference Range Comments PHOSPHORUS (BEAKER) (test bovj=680) 3.9 mg/dL 2.3-4.7 COMPREHENSIVE METABOLIC [id number] 09:49:00 Test Item Value Reference Range Comments TOTAL PROTEIN (BEAKER) 6.6 gm/dL 6.0-8.3 (test othv=658) ALBUMIN (BEAKER) (test 2.3 g/dL 3.5-5.0 owhi=2618) ALKALINE PHOSPHATASE 122 U/L 40-150 (BEAKER) (test kvht=440) BILIRUBIN TOTAL (BEAKER) 2.9 mg/dL 0.2-1.2 (test wajf=094) SODIUM (BEAKER) (test 137 meq/L 136-145 dxlq=579) POTASSIUM (BEAKER) (test 3.5 meq/L 3.5-5.1 jtsm=533) CHLORIDE (BEAKER) (test 105 meq/L 98-107 fnkk=014) CO2 (BEAKER) (test 26 meq/L 22-29 hxaq=259) BLOOD UREA NITROGEN 2 mg/dL 7-21 (BEAKER) (test bmje=289) CREATININE (BEAKER) (test 0.52 mg/dL 0.57-1.25 quku=284) GLUCOSE RANDOM (BEAKER) 70 mg/dL 70-105 (test vzoi=001) CALCIUM (BEAKER) (test 8.5 mg/dL 8.4-10.2 qoov=111) AST (SGOT) (BEAKER) (test 56 U/L 5-34 rbyi=962) ALT (SGPT) (BEAKER) (test 12 U/L 6-55 adwc=639) EGFR (BEAKER) (test 143 mL/min/1.73 sq ESTIMATED GFR IS NOT pkoa=1581) m ACCURATE CREATININE CLEARANCE IN PREDICTING GLOMERULAR FILTRATION RATE. ESTIMATED GFR IS NOT APPLICABLE FOR DIALYSIS PATIENTS. Specimen slightly ictericBILIRUBIN, [id number] 09:49:00 Test Item Value Reference Range Comments BILIRUBIN DIRECT (BEAKER) (test zcqr=777) 1.9 mg/dL 0.1-0.5 CBC W/PLT COUNT & AUTO [id number] 07:14:00 Test Item Value Reference Range Comments WHITE BLOOD CELL COUNT (BEAKER) (test swky=914) 4.0 K/ L 3.5-10.5 RED BLOOD CELL COUNT (BEAKER) (test ciqt=348) 2.45 M/ L 3.93-5.22 HEMOGLOBIN (BEAKER) (test gkiu=871) 7.6 GM/DL 11.2-15.7 HEMATOCRIT (BEAKER) (test tlia=793) 24.9 % 34.1-44.9 MEAN CORPUSCULAR VOLUME (BEAKER) (test amfh=323) 101.6 fL 79.4-94.8 MEAN CORPUSCULAR HEMOGLOBIN (BEAKER) (test 31.0 pg 25.6-32.2 nigx=949) MEAN CORPUSCULAR HEMOGLOBIN CONC (BEAKER) (test 30.5 GM/DL 32.2-35.5 ksoq=913) RED CELL DISTRIBUTION WIDTH (BEAKER) (test 21.2 % 11.7-14.4 wnci=566) PLATELET COUNT (BEAKER) (test aqvl=841) 104 K/CU MM 150-450 MEAN PLATELET VOLUME (BEAKER) (test isst=555) 11.0 fL 9.4-12.3 NUCLEATED RED BLOOD CELLS (BEAKER) (test 0 /100 WBC 0-0 jykv=912) NEUTROPHILS RELATIVE PERCENT (BEAKER) (test 63 % ucfx=331) LYMPHOCYTES RELATIVE PERCENT (BEAKER) (test 23 % bzfu=098) MONOCYTES RELATIVE PERCENT (BEAKER) (test 9 % ukcr=246) EOSINOPHILS RELATIVE PERCENT (BEAKER) (test 4 % haau=196) BASOPHILS RELATIVE PERCENT (BEAKER) (test 1 % zbtv=187) NEUTROPHILS ABSOLUTE COUNT (BEAKER) (test 2.51 K/ L 1.56-6.13 ncbq=879) LYMPHOCYTES ABSOLUTE COUNT (BEAKER) (test 0.93 K/ L 1.18-3.74 qmti=381) MONOCYTES ABSOLUTE COUNT (BEAKER) (test 0.34 K/ L 0.24-0.36 pwnn=146) EOSINOPHILS ABSOLUTE COUNT (BEAKER) (test 0.15 K/ L 0.04-0.36 fwsz=039) BASOPHILS ABSOLUTE COUNT (BEAKER) (test 0.03 K/ L 0.01-0.08 qgus=140) IMMATURE GRANULOCYTES-RELATIVE PERCENT (BEAKER) 0 % 0-1 (test fgps=2562) POCT-GLUCOSE [id number] 06:44:00 Test Item Value Reference Range Comments POC-GLUCOSE METER (BEAKER) 76 mg/dL 70-110 TESTED AT [address] (test owll=4449) [place] [id number] POCT-GLUCOSE [id number] 19:09:00 Test Item Value Reference Range Comments POC-GLUCOSE METER (BEAKER) 89 mg/dL 70-110 TESTED AT [address] (test ajem=6109) [place] [address] POCT-GLUCOSE [id number] 13:47:00 Test Item Value Reference Range Comments POC-GLUCOSE METER (BEAKER) 95 mg/dL 70-110 TESTED AT [address] (test plec=3340) [place] [address] [id number] 10:14:00 Test Item Value Reference Range Comments PHOSPHORUS (BEAKER) (test 3.7 mg/dL 2.3-4.7 Specimen moderately hemolyzed zejc=951) COMPREHENSIVE METABOLIC [id number] 10:14:00 Test Item Value Reference Range Comments TOTAL PROTEIN (BEAKER) 6.9 gm/dL 6.0-8.3 Specimen moderately (test cnzf=527) hemolyzed ALBUMIN (BEAKER) (test 2.3 g/dL 3.5-5.0 Specimen moderately zpyg=1605) hemolyzed ALKALINE PHOSPHATASE 138 U/L 40-150 (BEAKER) (test bjou=364) BILIRUBIN TOTAL (BEAKER) 2.4 mg/dL 0.2-1.2 Specimen moderately (test mqhl=173) hemolyzed SODIUM (BEAKER) (test 135 meq/L 136-145 titu=066) POTASSIUM (BEAKER) (test 4.2 meq/L 3.5-5.1 Specimen moderately tzzk=817) hemolyzed CHLORIDE (BEAKER) (test 107 meq/L 98-107 balw=390) CO2 (BEAKER) (test 21 meq/L 22-29 epuh=403) BLOOD UREA NITROGEN 2 mg/dL 7-21 (BEAKER) (test ycmy=379) CREATININE (BEAKER) (test 0.59 mg/dL 0.57-1.25 Specimen moderately svdj=443) hemolyzed GLUCOSE RANDOM (BEAKER) 73 mg/dL 70-105 (test vplp=115) CALCIUM (BEAKER) (test 8.2 mg/dL 8.4-10.2 kmuh=724) AST (SGOT) (BEAKER) (test 73 U/L 5-34 Specimen moderately zwes=134) hemolyzed ALT (SGPT) (BEAKER) (test 15 U/L 6-55 Specimen moderately biqp=123) hemolyzed EGFR (BEAKER) (test 123 mL/min/1.73 sq ESTIMATED GFR IS NOT nngi=3935) m ACCURATE CREATININE CLEARANCE IN PREDICTING GLOMERULAR FILTRATION RATE. ESTIMATED GFR IS NOT APPLICABLE FOR DIALYSIS PATIENTS. BILIRUBIN, [id number] 10:14:00 Test Item Value Reference Range Comments BILIRUBIN DIRECT (BEAKER) 1.1 mg/dL 0.1-0.5 Specimen moderately hemolyzed (test yfko=709) CBC W/PLT COUNT & AUTO [id number] 10:07:00 Test Item Value Reference Range Comments WHITE BLOOD CELL COUNT (BEAKER) (test csuu=258) 5.2 K/ L 3.5-10.5 RED BLOOD CELL COUNT (BEAKER) (test cyyn=620) 2.39 M/ L 3.93-5.22 HEMOGLOBIN (BEAKER) (test zxvg=004) 7.4 GM/DL 11.2-15.7 HEMATOCRIT (BEAKER) (test cqhh=154) 24.3 % 34.1-44.9 MEAN CORPUSCULAR VOLUME (BEAKER) (test efro=111) 101.7 fL 79.4-94.8 MEAN CORPUSCULAR HEMOGLOBIN (BEAKER) (test 31.0 pg 25.6-32.2 rsai=228) MEAN CORPUSCULAR HEMOGLOBIN CONC (BEAKER) (test 30.5 GM/DL 32.2-35.5 kacf=313) RED CELL DISTRIBUTION WIDTH (BEAKER) (test 21.2 % 11.7-14.4 xbci=950) PLATELET COUNT (BEAKER) (test akgi=896) 78 K/CU MM 150-450 MEAN PLATELET VOLUME (BEAKER) (test adyw=259) 12.4 fL 9.4-12.3 NUCLEATED RED BLOOD CELLS (BEAKER) (test 0 /100 WBC 0-0 bxpm=279) NEUTROPHILS RELATIVE PERCENT (BEAKER) (test 68 % omvx=347) LYMPHOCYTES RELATIVE PERCENT (BEAKER) (test 19 % npst=531) MONOCYTES RELATIVE PERCENT (BEAKER) (test 7 % cjqg=678) EOSINOPHILS RELATIVE PERCENT (BEAKER) (test 4 % heoe=059) BASOPHILS RELATIVE PERCENT (BEAKER) (test 1 % iyzb=142) NEUTROPHILS ABSOLUTE COUNT (BEAKER) (test 3.54 K/ L 1.56-6.13 njyf=225) LYMPHOCYTES ABSOLUTE COUNT (BEAKER) (test 1.00 K/ L 1.18-3.74 pqlx=317) MONOCYTES ABSOLUTE COUNT (BEAKER) (test cblo=531) 0.38 K/ L 0.24-0.36 EOSINOPHILS ABSOLUTE COUNT (BEAKER) (test 0.20 K/ L 0.04-0.36 csrw=952) BASOPHILS ABSOLUTE COUNT (BEAKER) (test tyft=927) 0.04 K/ L 0.01-0.08 IMMATURE GRANULOCYTES-RELATIVE PERCENT (BEAKER) 0 % 0-1 (test japg=7596) POCT-GLUCOSE [id number] 12:12:00 Test Item Value Reference Range Comments POC-GLUCOSE METER (BEAKER) 83 mg/dL 70-110 TESTED AT [facility] [address] [facility] (test juvv=2399) [facility] [address] [id number] 07:30:00 Test Item Value Reference Range Comments PHOSPHORUS (BEAKER) (test life=285) 1.9 mg/dL 2.3-4.7 COMPREHENSIVE METABOLIC [id number] 07:30:00 Test Item Value Reference Range Comments TOTAL PROTEIN (BEAKER) 6.5 gm/dL 6.0-8.3 (test ojzb=268) ALBUMIN (BEAKER) (test 2.3 g/dL 3.5-5.0 hgvg=0237) ALKALINE PHOSPHATASE 146 U/L 40-150 (BEAKER) (test rhxm=943) BILIRUBIN TOTAL (BEAKER) 2.7 mg/dL 0.2-1.2 (test lfom=443) SODIUM (BEAKER) (test 137 meq/L 136-145 ocpz=403) POTASSIUM (BEAKER) (test 4.0 meq/L 3.5-5.1 oxdo=055) CHLORIDE (BEAKER) (test 108 meq/L 98-107 petg=062) CO2 (BEAKER) (test 23 meq/L 22-29 fcft=141) BLOOD UREA NITROGEN 2 mg/dL 7-21 (BEAKER) (test qyao=133) CREATININE (BEAKER) (test 0.59 mg/dL 0.57-1.25 tfeq=280) GLUCOSE RANDOM (BEAKER) 79 mg/dL 70-105 (test yfcd=556) CALCIUM (BEAKER) (test 8.2 mg/dL 8.4-10.2 cfvi=686) AST (SGOT) (BEAKER) (test 75 U/L 5-34 shxz=723) ALT (SGPT) (BEAKER) (test 15 U/L 6-55 sxim=902) EGFR (BEAKER) (test 123 mL/min/1.73 sq ESTIMATED GFR IS NOT jvmn=9375) m ACCURATE CREATININE CLEARANCE IN PREDICTING GLOMERULAR FILTRATION RATE. ESTIMATED GFR IS NOT APPLICABLE FOR DIALYSIS PATIENTS. Specimen slightly ictericBILIRUBIN, [id number] 07:30:00 Test Item Value Reference Range Comments BILIRUBIN DIRECT (BEAKER) (test wior=150) 1.7 mg/dL 0.1-0.5 PROTHROMBIN [id number] 07:06:00 Test Item Value Reference Range Comments PROTIME (BEAKER) (test yurx=774) 18.2 seconds 11.7-14.7 INR (BEAKER) (test brhe=686) 1.5 <=5.9 RECOMMENDED COUMADIN/WARFARIN INR THERAPY RANGESSTANDARD DOSE: 2.0 - 3.0 Includes: PROPHYLAXIS forvenous thrombosis, systemic embolization; TREATMENT for venous thrombosis and/or pulmonary embolus.HIGH RISK: Target INR is 2.5-3.5 for patients with mechanical heart valves.CBC W/PLT COUNT & AUTO [id number] 06:50:00 Test Item Value Reference Range Comments WHITE BLOOD CELL COUNT (BEAKER) (test nuul=743) 5.2 K/ L 3.5-10.5 RED BLOOD CELL COUNT (BEAKER) (test ovrm=337) 2.47 M/ L 3.93-5.22 HEMOGLOBIN (BEAKER) (test wufe=932) 7.7 GM/DL 11.2-15.7 HEMATOCRIT (BEAKER) (test ewyg=477) 25.0 % 34.1-44.9 MEAN CORPUSCULAR VOLUME (BEAKER) (test rkjf=499) 101.2 fL 79.4-94.8 MEAN CORPUSCULAR HEMOGLOBIN (BEAKER) (test 31.2 pg 25.6-32.2 cnxd=937) MEAN CORPUSCULAR HEMOGLOBIN CONC (BEAKER) (test 30.8 GM/DL 32.2-35.5 qbak=450) RED CELL DISTRIBUTION WIDTH (BEAKER) (test 20.4 % 11.7-14.4 rhrt=700) PLATELET COUNT (BEAKER) (test whpc=132) 92 K/CU MM 150-450 MEAN PLATELET VOLUME (BEAKER) (test efty=238) 10.7 fL 9.4-12.3 NUCLEATED RED BLOOD CELLS (BEAKER) (test 0 /100 WBC 0-0 rfml=729) NEUTROPHILS RELATIVE PERCENT (BEAKER) (test 65 % yhdk=293) LYMPHOCYTES RELATIVE PERCENT (BEAKER) (test 24 % hfss=309) MONOCYTES RELATIVE PERCENT (BEAKER) (test 6 % ombj=710) EOSINOPHILS RELATIVE PERCENT (BEAKER) (test 4 % qxwm=200) BASOPHILS RELATIVE PERCENT (BEAKER) (test 1 % jezh=262) NEUTROPHILS ABSOLUTE COUNT (BEAKER) (test 3.39 K/ L 1.56-6.13 ffri=531) LYMPHOCYTES ABSOLUTE COUNT (BEAKER) (test 1.22 K/ L 1.18-3.74 bndl=603) MONOCYTES ABSOLUTE COUNT (BEAKER) (test wfkn=075) 0.33 K/ L 0.24-0.36 EOSINOPHILS ABSOLUTE COUNT (BEAKER) (test 0.20 K/ L 0.04-0.36 ihuv=494) BASOPHILS ABSOLUTE COUNT (BEAKER) (test wmrv=238) 0.03 K/ L 0.01-0.08 IMMATURE GRANULOCYTES-RELATIVE PERCENT (BEAKER) 0 % 0-1 (test ttuy=5265) POCT-GLUCOSE [id number] 12:42:00 Test Item Value Reference Range Comments POC-GLUCOSE METER (BEAKER) 109 mg/dL 70-110 TESTED AT [address] (test cbfp=5043) [facility] [address] POCT-GLUCOSE [id number] 06:17:00 Test Item Value Reference Range Comments POC-GLUCOSE METER (BEAKER) 153 mg/dL 70-110 TESTED AT [address] (test zgtj=8974) [facility] [address] [id number] 05:03:00 Test Item Value Reference Range Comments PHOSPHORUS (BEAKER) (test pxoo=333) 2.0 mg/dL 2.3-4.7 COMPREHENSIVE METABOLIC [id number] 05:03:00 Test Item Value Reference Range Comments TOTAL PROTEIN (BEAKER) 6.5 gm/dL 6.0-8.3 (test fzir=124) ALBUMIN (BEAKER) (test 2.3 g/dL 3.5-5.0 rslz=3375) ALKALINE PHOSPHATASE 138 U/L 40-150 (BEAKER) (test pmxr=891) BILIRUBIN TOTAL (BEAKER) 3.1 mg/dL 0.2-1.2 (test ffld=926) SODIUM (BEAKER) (test 134 meq/L 136-145 pqhp=455) POTASSIUM (BEAKER) (test 3.7 meq/L 3.5-5.1 huxg=659) CHLORIDE (BEAKER) (test 106 meq/L 98-107 zwpy=924) CO2 (BEAKER) (test 24 meq/L 22-29 zhjq=018) BLOOD UREA NITROGEN 2 mg/dL 7-21 (BEAKER) (test rixh=214) CREATININE (BEAKER) (test 0.63 mg/dL 0.57-1.25 iceu=728) GLUCOSE RANDOM (BEAKER) 126 mg/dL 70-105 (test lofa=780) CALCIUM (BEAKER) (test 8.0 mg/dL 8.4-10.2 vqgr=170) AST (SGOT) (BEAKER) (test 85 U/L 5-34 wwms=799) ALT (SGPT) (BEAKER) (test 17 U/L 6-55 rgzf=703) EGFR (BEAKER) (test 114 mL/min/1.73 sq ESTIMATED GFR IS NOT tlfi=3105) m ACCURATE CREATININE CLEARANCE IN PREDICTING GLOMERULAR FILTRATION RATE. ESTIMATED GFR IS NOT APPLICABLE FOR DIALYSIS PATIENTS. Specimen slightly ictericBILIRUBIN, [id number] 05:03:00 Test Item Value Reference Range Comments BILIRUBIN DIRECT (BEAKER) (test jybi=873) 2.1 mg/dL 0.1-0.5 PROTHROMBIN [id number] 04:49:00 Test Item Value Reference Range Comments PROTIME (BEAKER) (test zgns=029) 18.2 seconds 11.7-14.7 INR (BEAKER) (test cdtq=369) 1.5 <=5.9 RECOMMENDED COUMADIN/WARFARIN INR THERAPY RANGESSTANDARD DOSE: 2.0 - 3.0 Includes: PROPHYLAXIS forvenous thrombosis, systemic embolization; TREATMENT for venous thrombosis and/or pulmonary embolus.HIGH RISK: Target INR is 2.5-3.5 for patients with mechanical heart valves.CBC W/PLT COUNT & AUTO [id number] 04:48:00 Test Item Value Reference Range Comments WHITE BLOOD CELL COUNT (BEAKER) (test enjy=830) 5.0 K/ L 3.5-10.5 RED BLOOD CELL COUNT (BEAKER) (test mocv=626) 2.38 M/ L 3.93-5.22 HEMOGLOBIN (BEAKER) (test jgsp=778) 7.4 GM/DL 11.2-15.7 HEMATOCRIT (BEAKER) (test natv=945) 23.5 % 34.1-44.9 MEAN CORPUSCULAR VOLUME (BEAKER) (test xjry=763) 98.7 fL 79.4-94.8 MEAN CORPUSCULAR HEMOGLOBIN (BEAKER) (test 31.1 pg 25.6-32.2 uvux=081) MEAN CORPUSCULAR HEMOGLOBIN CONC (BEAKER) (test 31.5 GM/DL 32.2-35.5 oeft=308) RED CELL DISTRIBUTION WIDTH (BEAKER) (test 20.1 % 11.7-14.4 rozp=736) PLATELET COUNT (BEAKER) (test hliv=887) 58 K/CU MM 150-450 MEAN PLATELET VOLUME (BEAKER) (test stxh=713) 11.1 fL 9.4-12.3 NUCLEATED RED BLOOD CELLS (BEAKER) (test 0 /100 WBC 0-0 efzs=160) NEUTROPHILS RELATIVE PERCENT (BEAKER) (test 70 % dunh=041) LYMPHOCYTES RELATIVE PERCENT (BEAKER) (test 19 % weuc=368) MONOCYTES RELATIVE PERCENT (BEAKER) (test 7 % okkb=079) EOSINOPHILS RELATIVE PERCENT (BEAKER) (test 4 % krpf=857) BASOPHILS RELATIVE PERCENT (BEAKER) (test 0 % wgly=516) NEUTROPHILS ABSOLUTE COUNT (BEAKER) (test 3.49 K/ L 1.56-6.13 gyrp=459) LYMPHOCYTES ABSOLUTE COUNT (BEAKER) (test 0.93 K/ L 1.18-3.74 qiyt=803) MONOCYTES ABSOLUTE COUNT (BEAKER) (test qcwi=968) 0.33 K/ L 0.24-0.36 EOSINOPHILS ABSOLUTE COUNT (BEAKER) (test 0.19 K/ L 0.04-0.36 myvn=224) BASOPHILS ABSOLUTE COUNT (BEAKER) (test sirq=476) 0.02 K/ L 0.01-0.08 IMMATURE GRANULOCYTES-RELATIVE PERCENT (BEAKER) 0 % 0-1 (test epvp=3417) POCT-GLUCOSE [id number] 00:49:00 Test Item Value Reference Range Comments POC-GLUCOSE METER (BEAKER) 132 mg/dL 70-110 TESTED AT [facility] [address] [facility] (test wwbe=2562) [facility] [address] POCT-GLUCOSE [id number] 18:40:00 Test Item Value Reference Range Comments POC-GLUCOSE METER (BEAKER) 197 mg/dL 70-110 TESTED AT [facility] [address] (test tbbx=2134) [place] [address] [id number] 17:26:00 Test Item Value Reference Range Comments MAGNESIUM (BEAKER) (test wqnt=169) 2.5 mg/dL 1.6-2.6 [id number] 17:26:00 Test Item Value Reference Range Comments POTASSIUM (BEAKER) (test rgwx=370) 3.6 meq/L 3.5-5.1 VITAMIN B12 AND [id number] 17:24:00 Test Item Value Reference Range Comments VITAMIN B12 (BEAKER) (test pprl=280) 767 pg/mL 213-816 FOLATE (BEAKER) (test tool=893) 11.4 ng/mL >=7.0 [id number] 16:52:00 Test Item Value Reference Range Comments MAGNESIUM (BEAKER) (test 4.6 mg/dL 1.6-2.6 Specimen being redrawn, hprn=868) markedly hemolyzedThis is a corrected result. Previous result was 4.6 mg/dL on 01/04/2018 at 1644 [employer]IE[employer] RN notifiedURINALYSIS W/ REFLEX URINE [id number] 16:37:00 Test Item Value Reference Range Comments COLOR (BEAKER) (test tcfg=903) Jaida CLARITY (BEAKER) (test xwks=922) Hazy SPECIFIC GRAVITY UA (BEAKER) (test mdph=011) 1.028 1.001-1.035 PH UA (BEAKER) (test oacr=704) 6.0 5.0-8.0 PROTEIN UA (BEAKER) (test xghi=331) 70 mg/dL Negative GLUCOSE UA (BEAKER) (test lndr=934) Negative Negative KETONES UA (BEAKER) (test psrw=109) Negative Negative BILIRUBIN UA (BEAKER) (test eoqm=242) Positive Negative BLOOD UA (BEAKER) (test tazh=374) Trace Negative NITRITE UA (BEAKER) (test obip=640) Negative Negative LEUKOCYTE ESTERASE UA (BEAKER) (test elsl=335) Negative Negative UROBILINOGEN UA (BEAKER) (test xbhi=598) 0.2 mg/dL 0.2-1.0 RBC UA (BEAKER) (test rtti=758) < /HPF WBC UA (BEAKER) (test kcgk=415) 2 /HPF MUCUS (BEAKER) (test vpou=8544) Few SQUAMOUS EPITHELIAL (BEAKER) (test qctx=688) 11 /HPF HYALINE CASTS (BEAKER) (test kyar=297) 2 /LPF SOURCE(BEAKER) (test ooxh=0132) CBC W/PLT COUNT & AUTO [id number] 16:36:00 Test Item Value Reference Range Comments WHITE BLOOD CELL COUNT (BEAKER) (test ldxv=009) 5.6 K/ L 3.5-10.5 RED BLOOD CELL COUNT (BEAKER) (test gwlq=264) 2.52 M/ L 3.93-5.22 HEMOGLOBIN (BEAKER) (test sskt=599) 7.8 GM/DL 11.2-15.7 HEMATOCRIT (BEAKER) (test gxbe=034) 25.2 % 34.1-44.9 MEAN CORPUSCULAR VOLUME (BEAKER) (test aafr=407) 100.0 fL 79.4-94.8 MEAN CORPUSCULAR HEMOGLOBIN (BEAKER) (test 31.0 pg 25.6-32.2 ezsp=524) MEAN CORPUSCULAR HEMOGLOBIN CONC (BEAKER) (test 31.0 GM/DL 32.2-35.5 kerb=926) RED CELL DISTRIBUTION WIDTH (BEAKER) (test 21.9 % 11.7-14.4 tnxr=012) PLATELET COUNT (BEAKER) (test dwyv=332) 112 K/CU MM 150-450 MEAN PLATELET VOLUME (BEAKER) (test fwsc=247) 13.4 fL 9.4-12.3 NUCLEATED RED BLOOD CELLS (BEAKER) (test 0 /100 WBC 0-0 hxbl=836) NEUTROPHILS RELATIVE PERCENT (BEAKER) (test 74 % ozpy=624) LYMPHOCYTES RELATIVE PERCENT (BEAKER) (test 17 % lmtc=196) MONOCYTES RELATIVE PERCENT (BEAKER) (test 5 % kneh=147) EOSINOPHILS RELATIVE PERCENT (BEAKER) (test 3 % irwr=876) BASOPHILS RELATIVE PERCENT (BEAKER) (test 1 % yhui=162) NEUTROPHILS ABSOLUTE COUNT (BEAKER) (test 4.13 K/ L 1.56-6.13 qwvj=844) LYMPHOCYTES ABSOLUTE COUNT (BEAKER) (test 0.93 K/ L 1.18-3.74 mjnk=863) MONOCYTES ABSOLUTE COUNT (BEAKER) (test 0.25 K/ L 0.24-0.36 dfup=306) EOSINOPHILS ABSOLUTE COUNT (BEAKER) (test 0.19 K/ L 0.04-0.36 wldk=066) BASOPHILS ABSOLUTE COUNT (BEAKER) (test 0.03 K/ L 0.01-0.08 dpgk=149) IMMATURE GRANULOCYTES-RELATIVE PERCENT (BEAKER) 0 % 0-1 (test bpjk=5727) POCT-GLUCOSE [id number] 11:41:00 Test Item Value Reference Range Comments POC-GLUCOSE METER (BEAKER) 189 mg/dL 70-110 TESTED AT [facility] [address] [place] [address] (test gywk=5297) [facility] [address] RAPID DRUG SCREEN, [id number] 09:45:00 Test Item Value Reference Range Comments BARBITURATE URINE (BEAKER) (test jcft=692) Negative Negative BENZODIAZEPINE SCREEN URINE (BEAKER) (test Negative Negative viyp=904) COCAINE (METAB.) SCREEN (BEAKER) (test qgbi=9498) Negative Negative METHADONE SCREEN (BEAKER) (test rbrl=6521) Negative Negative OPIATE SCREEN URINE (BEAKER) (test doev=313) Positive Negative CANNABINOID SCREEN URINE (BEAKER) (test toba=257) Negative Negative AMPH/METHAMPH SCREEN (BEAKER) (test cksf=3499) Negative Negative PHENCYCLIDINE SCREEN URINE (BEAKER) (test ptxu=667) Negative Negative OXYCODONE SCREEN URINE (BEAKER) (test cmzd=7758) Negative Negative DRUG CUTOFF CONC.Cocaine 300 ng/mL Cannabinoid 50 ng/mL Benzodiazepine 200 ng/mLBarbiturate 200 ng/ mLPhencyclidine 25 ng/mLOpiate 300 ng/mLMethadone 300 ng/mLAmphetamine/ 1000 ng/mL MethamphetamineOxycodone 300 ng/mLThis assay provides an unconfirmed qualitative test result for the clinical management of patients in emergency situations. Chain of custody not maintained. Some uqws-wor-ppojoob medications, as well as adulterants, may cause inaccurate results. Clinical correlation should be applied. A more comprehensive drug screen or confirmation of a detected drug may be performed upon request. SCREEN, [id number] 09:26:00 Test Item Value Reference Range Comments TEST URINE (BEAKER) (test ylrz=502) Negative [id number] 08:20:00 Test Item Value Reference Range Comments MAGNESIUM (BEAKER) (test nevi=244) 2.0 mg/dL 1.6-2.6 POCT-GLUCOSE [id number] 06:05:00 Test Item Value Reference Range Comments POC-GLUCOSE METER (BEAKER) 169 mg/dL 70-110 TESTED AT [facility] [address] [facility] (test nigm=3255) [facility] [address] HEPATITIS A ANTIBODY, [id number] 05:03:00 Test Item Value Reference Range Comments HEPATITIS A IGG ANTIBODY (BEAKER) (test qwnq=2840) Reactive Nonreactive HEPATITIS B SURFACE [id number] 04:51:00 Test Item Value Reference Range Comments HEPATITIS B SURFACE ANTIBODY (BEAKER) (test < mIU/mL <8.0 arqf=298) HEPATITIS B SURFACE [id number] 04:36:00 Test Item Value Reference Range Comments HEPATITIS B SURFACE ANTIGEN (2) (BEAKER) (test Nonreactive Nonreactive tanb=9912) HEPATITIS C [id number] 04:36:00 Test Item Value Reference Range Comments HEPATITIS C ANTIBODY (BEAKER) (test mgrx=322) Nonreactive Nonreactive HEPATITIS A ANTIBODY, [id number] 04:36:00 Test Item Value Reference Range Comments HEPATITIS A IGM ANTIBODY (BEAKER) (test Nonreactive Nonreactive nnsx=562) HEPATITIS B CORE ANTIBODY, [id number] 04:36:00 Test Item Value Reference Range Comments HEPATITIS B CORE TOTAL ANTIBODY (BEAKER) (test Nonreactive Nonreactive ieqa=823) COMPREHENSIVE METABOLIC [id number] 04:17:00 Test Item Value Reference Range Comments TOTAL PROTEIN (BEAKER) 6.9 gm/dL 6.0-8.3 (test kxik=963) ALBUMIN (BEAKER) (test 2.4 g/dL 3.5-5.0 jlvy=7728) ALKALINE PHOSPHATASE 154 U/L 40-150 (BEAKER) (test aobd=363) BILIRUBIN TOTAL (BEAKER) 4.2 mg/dL 0.2-1.2 (test kpzk=247) SODIUM (BEAKER) (test 132 meq/L 136-145 dyfe=782) POTASSIUM (BEAKER) (test 3.3 meq/L 3.5-5.1 kvog=109) CHLORIDE (BEAKER) (test 101 meq/L 98-107 bcim=688) CO2 (BEAKER) (test 24 meq/L 22-29 pzro=673) BLOOD UREA NITROGEN 2 mg/dL 7-21 (BEAKER) (test zxpb=559) CREATININE (BEAKER) (test 0.70 mg/dL 0.57-1.25 jzdh=244) GLUCOSE RANDOM (BEAKER) 149 mg/dL 70-105 (test khpy=548) CALCIUM (BEAKER) (test 7.5 mg/dL 8.4-10.2 rcyw=595) AST (SGOT) (BEAKER) (test 81 U/L 5-34 slwi=769) ALT (SGPT) (BEAKER) (test 15 U/L 6-55 gjok=746) EGFR (BEAKER) (test 101 mL/min/1.73 sq ESTIMATED GFR IS NOT aopw=2065) m ACCURATE CREATININE CLEARANCE IN PREDICTING GLOMERULAR FILTRATION RATE. ESTIMATED GFR IS NOT APPLICABLE FOR DIALYSIS PATIENTS. Specimen moderately ictericPROTHROMBIN [id number] 04:12:00 Test Item Value Reference Range Comments PROTIME (BEAKER) (test cgrm=787) 18.2 seconds 11.7-14.7 INR (BEAKER) (test usgj=323) 1.5 <=5.9 RECOMMENDED COUMADIN/WARFARIN INR THERAPY RANGESSTANDARD DOSE: 2.0 - 3.0 Includes: PROPHYLAXIS forvenous thrombosis, systemic embolization; TREATMENT for venous thrombosis and/or pulmonary embolus.HIGH RISK: Target INR is 2.5-3.5 for patients with mechanical heart valves.CBC W/PLT COUNT & AUTO [id number] 04:07:00 Test Item Value Reference Range Comments WHITE BLOOD CELL COUNT (BEAKER) (test cnek=856) 5.9 K/ L 3.5-10.5 RED BLOOD CELL COUNT (BEAKER) (test cdty=628) 2.41 M/ L 3.93-5.22 HEMOGLOBIN (BEAKER) (test tuzz=346) 7.5 GM/DL 11.2-15.7 HEMATOCRIT (BEAKER) (test biix=575) 23.1 % 34.1-44.9 MEAN CORPUSCULAR VOLUME (BEAKER) (test bblx=334) 95.9 fL 79.4-94.8 MEAN CORPUSCULAR HEMOGLOBIN (BEAKER) (test 31.1 pg 25.6-32.2 vxeg=760) MEAN CORPUSCULAR HEMOGLOBIN CONC (BEAKER) (test 32.5 GM/DL 32.2-35.5 gkat=339) RED CELL DISTRIBUTION WIDTH (BEAKER) (test 19.4 % 11.7-14.4 tfvw=144) PLATELET COUNT (BEAKER) (test mmdb=072) 84 K/CU MM 150-450 MEAN PLATELET VOLUME (BEAKER) (test ghyt=412) 10.2 fL 9.4-12.3 NUCLEATED RED BLOOD CELLS (BEAKER) (test 0 /100 WBC 0-0 dfxg=843) NEUTROPHILS RELATIVE PERCENT (BEAKER) (test 67 % ufyu=690) LYMPHOCYTES RELATIVE PERCENT (BEAKER) (test 21 % eqnf=049) MONOCYTES RELATIVE PERCENT (BEAKER) (test 7 % vrij=213) EOSINOPHILS RELATIVE PERCENT (BEAKER) (test 3 % mkjg=321) BASOPHILS RELATIVE PERCENT (BEAKER) (test 1 % adle=535) NEUTROPHILS ABSOLUTE COUNT (BEAKER) (test 3.94 K/ L 1.56-6.13 miqw=898) LYMPHOCYTES ABSOLUTE COUNT (BEAKER) (test 1.25 K/ L 1.18-3.74 nfow=833) MONOCYTES ABSOLUTE COUNT (BEAKER) (test uink=030) 0.43 K/ L 0.24-0.36 EOSINOPHILS ABSOLUTE COUNT (BEAKER) (test 0.15 K/ L 0.04-0.36 wrxd=070) BASOPHILS ABSOLUTE COUNT (BEAKER) (test occf=209) 0.04 K/ L 0.01-0.08 IMMATURE GRANULOCYTES-RELATIVE PERCENT (BEAKER) 1 % 0-1 (test kqfn=9617) CBC W/PLT COUNT & AUTO [id number] 00:45:00 Test Item Value Reference Range Comments WHITE BLOOD CELL COUNT (BEAKER) (test eopu=274) 6.2 K/ L 3.5-10.5 RED BLOOD CELL COUNT (BEAKER) (test wrth=207) 2.33 M/ L 3.93-5.22 HEMOGLOBIN (BEAKER) (test sjdn=891) 7.2 GM/DL 11.2-15.7 HEMATOCRIT (BEAKER) (test mdim=226) 22.8 % 34.1-44.9 MEAN CORPUSCULAR VOLUME (BEAKER) (test mqnx=117) 97.9 fL 79.4-94.8 MEAN CORPUSCULAR HEMOGLOBIN (BEAKER) (test 30.9 pg 25.6-32.2 scql=048) MEAN CORPUSCULAR HEMOGLOBIN CONC (BEAKER) (test 31.6 GM/DL 32.2-35.5 dzuk=729) RED CELL DISTRIBUTION WIDTH (BEAKER) (test 19.2 % 11.7-14.4 iykg=236) PLATELET COUNT (BEAKER) (test ppon=653) 72 K/CU MM 150-450 MEAN PLATELET VOLUME (BEAKER) (test febl=908) 11.1 fL 9.4-12.3 NUCLEATED RED BLOOD CELLS (BEAKER) (test 0 /100 WBC 0-0 xlsh=907) NEUTROPHILS RELATIVE PERCENT (BEAKER) (test 71 % dzei=954) LYMPHOCYTES RELATIVE PERCENT (BEAKER) (test 19 % xfhj=422) MONOCYTES RELATIVE PERCENT (BEAKER) (test 7 % hvyy=435) EOSINOPHILS RELATIVE PERCENT (BEAKER) (test 2 % mkkg=692) BASOPHILS RELATIVE PERCENT (BEAKER) (test 1 % qrks=906) NEUTROPHILS ABSOLUTE COUNT (BEAKER) (test 4.39 K/ L 1.56-6.13 iizw=144) LYMPHOCYTES ABSOLUTE COUNT (BEAKER) (test 1.17 K/ L 1.18-3.74 qxem=260) MONOCYTES ABSOLUTE COUNT (BEAKER) (test vpsd=173) 0.42 K/ L 0.24-0.36 EOSINOPHILS ABSOLUTE COUNT (BEAKER) (test 0.12 K/ L 0.04-0.36 pznz=648) BASOPHILS ABSOLUTE COUNT (BEAKER) (test dcxr=209) 0.03 K/ L 0.01-0.08 IMMATURE GRANULOCYTES-RELATIVE PERCENT (BEAKER) 1 % 0-1 (test zehd=7527) POCT-GLUCOSE [id number] 23:55:00 Test Item Value Reference Range Comments POC-GLUCOSE METER (BEAKER) 218 mg/dL 70-110 TESTED AT [facility] [address] [facility] (test frod=9328) [place] [address] POCT-GLUCOSE [id number] 18:34:00 Test Item Value Reference Range Comments POC-GLUCOSE METER (BEAKER) 270 mg/dL 70-110 TESTED AT [facility] [address] (test mquo=9232) [facility] [address] U/S, ABDOMINAL, [id number] 16:54:00Abdomen limited area? Add comment if clarification is needed.->Right upper quadrantReason for exam:->EtOH abuse , elevated INR, thrombocytopenia, concern for cirrhosisFINAL REPORT Right upper quadrant Ultrasound Clinical Diagnosis: Alcohol abuse increased INR thrombocytopenia and cirrhosis Comparison: No comparison Technique : Multiple transaxial and longitudinal images were obtained through the abdomen with real time ultrasonography. MHztransducer was utilized. 80 images were submitted for interpretation. Report:Liver: The liver measures 24.5 cm in the right midaxillary line. There are no focal masses. The echogenicity is within normal limits.Spleen: The spleen measures 16.3 cm in the left mid axillary line. Gallbladder: The transverse diameter is for cm. The wall measures two mm. There are shadowing stones visualized. Biliary tree: There is no evidence of intra or extra hepatic biliary ductal dilatation. The commonbile duct measures three mm.Portal vein: The portal vein measures 13 mm. Pancreas: The pancreatic tail is not well seen secondary to overlying bowel gas. Ascites: TracePleural Effusion: Right traceRight kidney: The right kidney measures 12.2 cm in length no evidence of hydronephrosis.IVC/Aorta : Partially seen segments demonstrate no abnormality. Maximum transverse dimension of aorta is 2.1 cm Impression:Hepatomegaly.Splenomegaly.Mild ascites and trace right effusion.Pericholecystic fluid which may be secondary to hypoproteinemia. Signed: Shena Forrest Verified Date/Time: 2017 16:54:35 Reading Location: [address] Ultrasound Reading Room COMPREHENSIVE METABOLIC [id number] 14:29:00 Test Item Value Reference Range Comments TOTAL PROTEIN (BEAKER) 6.9 gm/dL 6.0-8.3 (test abiy=764) ALBUMIN (BEAKER) (test 2.5 g/dL 3.5-5.0 ofim=1275) ALKALINE PHOSPHATASE 157 U/L 40-150 (BEAKER) (test gqsj=335) BILIRUBIN TOTAL (BEAKER) 3.7 mg/dL 0.2-1.2 (test qvch=794) SODIUM (BEAKER) (test 135 meq/L 136-145 cqio=709) POTASSIUM (BEAKER) (test 3.1 meq/L 3.5-5.1 nakl=202) CHLORIDE (BEAKER) (test 100 meq/L 98-107 ttdr=127) CO2 (BEAKER) (test 19 meq/L 22-29 rmmd=802) BLOOD UREA NITROGEN 2 mg/dL 7-21 (BEAKER) (test ildp=004) CREATININE (BEAKER) (test 0.55 mg/dL 0.57-1.25 qkse=430) GLUCOSE RANDOM (BEAKER) 60 mg/dL 70-105 (test fenc=900) CALCIUM (BEAKER) (test 7.4 mg/dL 8.4-10.2 rjto=282) AST (SGOT) (BEAKER) (test 98 U/L 5-34 tuai=108) ALT (SGPT) (BEAKER) (test 17 U/L 6-55 yhcx=079) EGFR (BEAKER) (test 134 mL/min/1.73 sq ESTIMATED GFR IS NOT dtko=3411) m ACCURATE CREATININE CLEARANCE IN PREDICTING GLOMERULAR FILTRATION RATE. ESTIMATED GFR IS NOT APPLICABLE FOR DIALYSIS PATIENTS. Specimen slightly [id number] 14:28:00 Test Item Value Reference Range Comments MAGNESIUM (BEAKER) (test jgsn=631) 1.3 mg/dL 1.6-2.6 [id number] 14:28:00 Test Item Value Reference Range Comments LIPASE (BEAKER) (test eqin=262) 11 U/L 8-78 Specimen slightly ictericPT/[id number] 13:56:00 Test Item Value Reference Range Comments PROTIME (BEAKER) (test upeo=868) 18.4 seconds 11.7-14.7 INR (BEAKER) (test jdve=454) 1.5 <=5.9 PARTIAL THROMBOPLASTIN TIME (BEAKER) (test 45.0 seconds 22.5-36.0 zekk=722) RECOMMENDED COUMADIN/WARFARIN INR THERAPY RANGESSTANDARD DOSE: 2.0 - 3.0 Includes: PROPHYLAXIS forvenous thrombosis, systemic embolization; TREATMENT for venous thrombosis and/or pulmonary embolus.HIGH RISK: Target INR is 2.5-3.5 for patients with mechanical heart valves.CBC W/PLT COUNT & AUTO [id number] 13:50:00 Test Item Value Reference Range Comments WHITE BLOOD CELL COUNT (BEAKER) (test tukh=488) 6.2 K/ L 3.5-10.5 RED BLOOD CELL COUNT (BEAKER) (test epss=071) 2.12 M/ L 3.93-5.22 HEMOGLOBIN (BEAKER) (test nqrk=400) 6.5 GM/DL 11.2-15.7 HEMATOCRIT (BEAKER) (test fmjx=883) 20.9 % 34.1-44.9 MEAN CORPUSCULAR VOLUME (BEAKER) (test uimk=731) 98.6 fL 79.4-94.8 MEAN CORPUSCULAR HEMOGLOBIN (BEAKER) (test 30.7 pg 25.6-32.2 urhy=354) MEAN CORPUSCULAR HEMOGLOBIN CONC (BEAKER) (test 31.1 GM/DL 32.2-35.5 dvvv=985) RED CELL DISTRIBUTION WIDTH (BEAKER) (test 19.2 % 11.7-14.4 ivhl=743) PLATELET COUNT (BEAKER) (test vtfm=336) 83 K/CU MM 150-450 MEAN PLATELET VOLUME (BEAKER) (test hhfh=844) 11.0 fL 9.4-12.3 NUCLEATED RED BLOOD CELLS (BEAKER) (test 0 /100 WBC 0-0 rynd=493) NEUTROPHILS RELATIVE PERCENT (BEAKER) (test 79 % jwfx=840) LYMPHOCYTES RELATIVE PERCENT (BEAKER) (test 14 % zdki=916) MONOCYTES RELATIVE PERCENT (BEAKER) (test 5 % fuqx=243) EOSINOPHILS RELATIVE PERCENT (BEAKER) (test 1 % gbmv=190) BASOPHILS RELATIVE PERCENT (BEAKER) (test 1 % ialh=051) NEUTROPHILS ABSOLUTE COUNT (BEAKER) (test 4.89 K/ L 1.56-6.13 iwdd=777) LYMPHOCYTES ABSOLUTE COUNT (BEAKER) (test 0.88 K/ L 1.18-3.74 vdgr=121) MONOCYTES ABSOLUTE COUNT (BEAKER) (test ascw=890) 0.33 K/ L 0.24-0.36 EOSINOPHILS ABSOLUTE COUNT (BEAKER) (test 0.03 K/ L 0.04-0.36 pnzv=871) BASOPHILS ABSOLUTE COUNT (BEAKER) (test hfeg=661) 0.03 K/ L 0.01-0.08 IMMATURE GRANULOCYTES-RELATIVE PERCENT (BEAKER) 1 % 0-1 (test pkgu=5013)
[2018-01-24 17:55] LABS: Absolute Lymphocytes (CBC) 1.7 K/uL (0.7-4.9); Absolute Monocytes 0.6 K/uL (0.1-1.3); Basophils % 1.2 % (0-1.3); Eosinophils % 3.9 % (0-4.4); Hematocrit 29.8 % (36.0-45.0); Lymphocytes % 25.7 % (15.3-44.8); MCH 31.7 pg (27.0-35.0); MCV 95.6 fL (80-100); MPV 7.9 fL (7.6-11.3); Monocytes % 9.2 % (3.3-12.3); RBC Red Blood Cell Count 3.12 M/uL (3.86-4.86)
[2018-01-24] MEDS ORDERED: LORazepam 2 MG/ML VIAL ONE (17:55)
[2018-01-24] MEDS ORDERED: THIAMINE 200 MG/2 ML INJ ONE (17:55)
[2018-01-24] MEDS ORDERED: NA CHLORIDE 0.9% 500 ML ONE (17:55)
[2018-01-24 18:00] LABS: Protime INR 1.54
[2018-01-24 18:16] LABS: Barbiturates NEGATIVE (NEGATIVE); Benzodiazepines NEGATIVE (NEGATIVE); Cocaine NEGATIVE (NEGATIVE); METHAMPHETAM NEGATIVE (NEGATIVE); Methadone NEGATIVE (NEGATIVE); Opiates NEGATIVE (NEGATIVE); Phencyclidine NEGATIVE (NEGATIVE); THC Cannibis NEGATIVE (NEGATIVE)
[2018-01-24 18:34] LABS: ALT/SGPT 26 U/L (12-78); AST/SGOT 144 U/L (15-37); Albumin 2.4 g/dL (3.4-5.0); Alkaline Phosphatase 188 U/L (45-117); BUN Blood Urea Nitrogen 4 mg/dL (7-18); Bicarbonate 26 mmol/L (21-32); Bilirubin Direct 1.9 mg/dL (0-0.2); Bilirubin Total 2.6 mg/dL (0.2-1.0); Glucose Level 100 mg/dL (74-106); NT PRO-BNP 961 pg/mL (<125); Protein, Total 8.5 g/dL (6.4-8.2); Sodium Level 146 mmol/L (136-145)
[2018-01-24 18:38] LABS: Potassium 2.5 mmol/L (3.5-5.1)
--- NOTE | 2018-01-24 18:42 | RAD REPORT ---
EXAM DESCRIPTION: RAD - Chest Single View - 01/24/2018 6:23 pm CLINICAL HISTORY: Shortness of breath, tachycardia COMPARISON: None. TECHNIQUE: AP portable chest image was obtained 1809 hours . FINDINGS: Lung volumes are very low. This accentuates heart, vasculature and lung markings. No focal lung parenchymal process. Significant failure or volume overload are doubtful. Heart and vasculature are normal. No measurable pleural effusion and no pneumothorax. No acute bony abnormality seen. No a cute aortic findings suspected. IMPRESSION: Limited shallow inspiration exam with no acute cardiopulmonary finding.
--- NOTE | 2018-01-24 18:45 | RAD REPORT ---
EXAM DESCRIPTION: US - Abdomen Exam Limited - 01/24/2018 6:24 pm CLINICAL HISTORY: Abdominal pain, known liver disease COMPARISON: CT study October 2015 FINDINGS: No gallstones, sludge or other abnormalities within the gallbladder lumen. Gallbladder wal l is thickened. There is trace amount of pericholecystic fluid is believed to be part of a mild ascit es. Liver shows a nodular capsular contour. No focal liver lesions seen. There is coarsened, increase d echogenicity throughout the liver parenchyma. Patient has known diffuse fatty infiltration. Patient likely has cirrhosis or diffuse hepatic parenchymal disease as well. No common duct stone or biliary tree dilatation identified. IMPRESSION: No gallstones or significant sludge identifiable. Gallbladder wall thickening and trace pericholecystic fluid are present with the fluid probably part of a mild ascites. Wall thickening can be an indicator of acute or chronic gallbladder disease as well as a secondary re sponse to the patient's underlying liver parenchymal disease.
[2018-01-24 18:47] LABS: Urine Blood TRACE (NEG); Urine Glucose NEGATIVE (NEG); Urine Protein 2+ (NEG); Urine Specific Gravity 1.025 (1.005-1.030)
--- NOTE | 2018-01-24 19:11 | ER ---
Nurse's Notes [facility] Name: Lj Lay Age: 27 yrs Sex: Female : 1990 Arrival Date: 01/24/2018 Time: 16:42 Bed 8 Private MD: None, None Diagnosis: lower extremity edema;hypokalemia;alcoholic liver disease Presentation: 01/24 17:11 Presenting complaint: Patient states: was sent from clinic for high heart rate, hx of iw cirrhosis, GI bleed, pt states she has been having blood in stool for a year now and vomiting blood, also has tala leg swelling for 3 weeks. Transition of care: patient was not received from another setting of care. Onset of symptoms. Risk Assessment: Do you want to hurt yourself or someone else? Patient reports no desire to harm self or others. Initial Sepsis Screen: Does the patient meet any 2 criteria? No. Patient's initial sepsis screen is negative. Does the patient have a suspected source of infection? No. Patient's initial sepsis screen is negative. Care prior to arrival: None. 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 - Social history:: Smoking status: Patient uses tobacco products, smokes one pack cigarettes per day. Patient uses alcohol, on a daily basis. drinks 1/2 gallon whiskey per day . - Ebola Screening: : Patient negative for fever greater than or equal to 101.5 degrees Fahrenheit, and additional compatible Ebola Virus Disease symptoms Patient denies exposure to infectious person Patient denies travel to an Ebola-affected area in the 21 days before illness onset No symptoms or risks identified at this time. Screenin:16 Abuse screen: Denies threats or abuse. Denies injuries from another. Nutritional ph screening: No deficits noted. Tuberculosis screening: No symptoms or risk factors identified. Fall Risk No fall in past 12 months (0 pts). No secondary diagnosis (0 pts). IV access (20 points). Ambulatory Aid- None/Bed Rest/Nurse Assist (0 pts). Gait- Impaired (20 pts.). Mental Status- Overestimates/Forgets Limitations (15 pts.). Total Mccallum Fall Scale indicates High Risk Score (45 or more points). Fall prevention measures have been instituted. Side Rails Up X 2 Frequent Obs/Assessments Occuring Family Present and informed to notify staff if the need to leave the bedside As available patient and family educated on Fall Prevention Program and Strategies. Assessment: 17:30 General: Appears in no apparent distress. uncomfortable, ill, cachectic, Behavior is ph calm, cooperative, drowsy, Smells of alcohol, Reports feeling ill for > 3 days, fatigue for >3 days, Pt reports hx of alcoholism, drinks approx 1/2 gallon whiskey per day, states, " My last drink was right before I came up here.". Pain: Complains of pain in right leg and left leg. Neuro: Level of Consciousness is awake, obeys commands, lethargic, Oriented to person, place, time, situation, Reports dizziness, paresthesias in right leg and left leg. 18:01 Reassessment: Patient appears in no apparent distress at this time. Patient and/or ph family updated on plan of care and expected duration. Pain level reassessed. Pt taken to US via stretcher. 19:12 Reassessment: Patient appears in no apparent distress at this time. Patient and/or ph family updated on plan of care and expected duration. Pain level reassessed. Pt awake but remains drowsy, awaiting d/c papers. Vital Signs: 17:14 BP 125 / 73; Pulse 110; Resp 18 S; Pulse Ox 98% on R/A; Weight 76.2 kg; Height 5 ft. 7 iw in. (170.18 cm); 17:14 BP 125 / 73; Pulse 114; Resp 18; Temp 98.3(TE); Pulse Ox 98% on R/A; ph 18:30 BP 127 / 84; Pulse 105; Resp 18; Pulse Ox 98% on R/A; ph 17:14 Body Mass Index 26.31 (76.20 kg, 170.18 cm) iw ED Course: 16:42 Patient arrived in ED. sb2 16:43 None, None is Private Physician. sb2 16:49 Lester Pagan MD is Attending Physician. wa 16:56 Ewa Davila, RN is Primary Nurse. ph 17:13 Triage completed. iw 17:14 Arm band placed on. iw 17:17 Patient has correct armband on for positive identification. Placed in gown. Bed in low ph position. Call light in reach. Side rails up X2. desk monitor on. Pulse ox on. NIBP on. Warm blanket given. 17:27 EKG done, by chief technologist. reviewed by Lester Pagan MD. sm3 17:46 Inserted saline lock: 20 gauge in left antecubital area, using aseptic technique. Blood ag collected. 18:23 Chest Single View XRAY In Process Unspecified. EDMS 18:25 Abdomen Exam Limited In Process Unspecified. EDMS 19:09 Lester Thomas MD is Referral Physician. wa 19:17 No provider procedures requiring assistance completed. ph 19:35 IV discontinued, intact, bleeding controlled, No redness/swelling at site. Pressure ph dressing applied. Administered Medications: 17:55 Drug: Ativan 0.5 mg Route: IVP; Site: left antecubital; ph 19:35 Follow up: Response: No adverse reaction ph 17:55 Drug: NS 0.9% 500 ml Route: IV; Rate: bolus; Site: left antecubital; ph 19:34 Follow up: Response: No adverse reaction; IV Status: Completed infusion ph 17:55 Drug: Thiamine 100 mg Route: IM; Site: left deltoid; ph 19:34 Follow up: Response: No adverse reaction ph 19:19 Drug: Potassium Effervescent Tablet 50 mEq Route: PO; ph 19:34 Follow up: Response: No adverse reaction ph Outcome: 19:10 Discharge ordered by . wa 19:35 Discharged to home ambulatory, with family. ph 19:35 Condition: stable 19:35 Discharge instructions given to patient, Instructed on discharge instructions, follow up and referral plans. medication usage, Demonstrated understanding of instructions, follow-up care, medications, Prescriptions given X 2. 19:38 Patient left the ED. jd3 Signatures: Dispatcher [employer] EDMS Gracy Hernandez RN RN iw Gail Solares Patricia, MACIEJ RN Lester Pagan MD MD wa Davies, Jonathon, RN RN jd3 Mickie Vargas sb2 Betsy Xie 3
--- NOTE | 2018-01-24 19:11 | EDPHYS ---
Physician Documentation [facility] Name: Lj Lay Age: 27 yrs Sex: Female : 1990 Arrival Date: 01/24/2018 Time: 16:42 Bed 8 Private MD: None, None ED Physician Lester Pagan HPI: 01/24 18:13 This 27 yrs old Female presents to ER via Wheelchair with complaints of Leg wa Swelling, HIGH HEART RATE. 18:13 The patient presents with swelling, both legs. states has edema due to cirrhosis. went wa to primary clinic to get checked and get script for ativan. told to come to ER for leg swelling and increased heart rate. Pt still drinking alcohol daily. The complaints affect the both legs. Context: denies injury. . Onset: The symptoms/episode began/occurred 1 month(s) ago. Modifying factors: The symptoms are alleviated by nothing. the symptoms are aggravated by nothing. Associated signs and symptoms: The patient has no apparent associated signs or symptoms. Treatment prior to arrival includes: no previous treatment. Severity of symptoms: At their worst the symptoms were moderate, in the emergency department the symptoms are unchanged. The patient has experienced similar episodes in the past. The patient has been recently seen by a physician:. 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 - Social history:: Smoking status: Patient uses tobacco products, smokes one pack cigarettes per day. Patient uses alcohol, on a daily basis. drinks 1/2 gallon whiskey per day . - Ebola Screening: : Patient negative for fever greater than or equal to 101.5 degrees Fahrenheit, and additional compatible Ebola Virus Disease symptoms Patient denies exposure to infectious person Patient denies travel to an Ebola-affected area in the 21 days before illness onset No symptoms or risks identified at this time. ROS: 18:19 Constitutional: Negative for fever, chills, and weight loss, Eyes: Negative for injury, wa pain, redness, and discharge, ENT: Negative for injury, pain, and discharge, Neck: Negative for injury, pain, and swelling, Cardiovascular: Negative for chest pain, palpitations, and edema, Respiratory: Negative for shortness of breath, cough, wheezing, and pleuritic chest pain, Abdomen/GI: Negative for abdominal pain, nausea, vomiting, diarrhea, and constipation, Back: Negative for injury and pain, : Negative for injury, bleeding, discharge, and swelling, Skin: Negative for injury, rash, and discoloration, Neuro: Negative for headache, weakness, numbness, tingling, and seizure, Psych: Negative for depression, anxiety, suicide ideation, homicidal ideation, and hallucinations. 18:19 MS/extremity: Positive for swelling, of the both legs, edema. 18:19 All other systems are negative. Exam: 18:20 Constitutional: This is a well developed, well nourished patient who is awake, alert, wa and in no acute distress. Head/Face: Normocephalic, atraumatic. Eyes: Pupils equal round and reactive to light, extra-ocular motions intact. Lids and lashes normal. Conjunctiva and sclera are non-icteric and not injected. Cornea within normal limits. Periorbital areas with no swelling, redness, or edema. ENT: Nares patent. No nasal discharge, no septal abnormalities noted. Tympanic membranes are normal and external auditory canals are clear. Oropharynx with no redness, swelling, or masses, exudates, or evidence of obstruction, uvula midline. Mucous membranes moist. Neck: Trachea midline, no thyromegaly or masses palpated, and no cervical lymphadenopathy. Supple, full range of motion without nuchal rigidity, or vertebral point tenderness. No Meningismus. Chest/axilla: Normal chest wall appearance and motion. Nontender with no deformity. No lesions are appreciated. Respiratory: Lungs have equal breath sounds bilaterally, clear to auscultation and percussion. No rales, rhonchi or wheezes noted. No increased work of breathing, no retractions or nasal flaring. Abdomen/GI: Soft, non-tender, with normal bowel sounds. No distension or tympany. No guarding or rebound. No evidence of tenderness throughout. Back: No spinal tenderness. No costovertebral tenderness. Full range of motion. Skin: Warm, dry with normal turgor. Normal color with no rashes, no lesions, and no evidence of cellulitis. Neuro: Awake and alert, GCS 15, oriented to person, place, time, and situation. Cranial nerves II-XII grossly intact. Motor strength 5/5 in all extremities. Sensory grossly intact. Cerebellar exam normal. Normal gait. Psych: Awake, alert, with orientation to person, place and time. Behavior, mood, and affect are within normal limits. 18:20 Cardiovascular: Rate: tachycardic, Rhythm: regular, Pulses: no pulse deficits are appreciated, Heart sounds: normal, Edema: 2+ edema to level of left midcalf, left ankle, left foot, left toes, right midcalf, right ankle, right foot and right toes. Vital Signs: 17:14 BP 125 / 73; Pulse 110; Resp 18 S; Pulse Ox 98% on R/A; Weight 76.2 kg; Height 5 ft. 7 iw in. (170.18 cm); 17:14 BP 125 / 73; Pulse 114; Resp 18; Temp 98.3(TE); Pulse Ox 98% on R/A; ph 18:30 BP 127 / 84; Pulse 105; Resp 18; Pulse Ox 98% on R/A; ph 17:14 Body Mass Index 26.31 (76.20 kg, 170.18 cm) iw MDM: 16:49 Patient medically screened. wa 18:59 Differential diagnosis: suspect edema secondary to liver DZ. will work up and reassess. mn Data reviewed: vital signs, nurses notes. Test interpretation: by ED physician or midlevel provider: labs noted with AST 144. elevated T.bili at 2.6. low albumin 2.4. BNP 961. UA noted for trace blood. 2+ protein. nml CXR. US abd: mild ascites vs diffuse parenchymal disease. EKG: HR 106. sinus tach. 19:02 ED course: po kcl given for low K. . mn 19:08 Response to treatment: the patient's symptoms have markedly improved after treatment. mn ED course: will have f/u with GI. advised to quit ETOH. will script for a few benzos and close f/u. 01/24 17: Order name: Acetaminophen; Complete Time: 18:57 mn 01/24 17:26 Order name: Basic Metabolic Panel; Complete Time: 18:56 mn 01/24 17:26 Order name: CBC with Diff; Complete Time: 18:24 mn 01/24 17:26 Order name: ETOH Level; Complete Time: 18:24 mn 01/24 17:26 Order name: Hepatic Function; Complete Time: 18:57 mn 01/24 17:26 Order name: PT-INR; Complete Time: 18:25 mn 01/24 17:26 Order name: Salicylate; Complete Time: 18:57 mn 01/24 17:26 Order name: Urine Drug Screen; Complete Time: 18:25 mn 01/24 17:27 Order name: Chest Single View XRAY; Complete Time: 18:57 mn 01/24 17:27 Order name: BNP; Complete Time: 18:57 mn 01/24 18:05 Order name: Urine Dipstick--Ancillary (enter results); Complete Time: 18:57 01/24 18:05 Order name: Urine --Ancillary (enter results) 01/24 18:21 Order name: Lipase; Complete Time: 18:56 mn 01/24 17:26 Order name: Urine Test (obtain specimen); Complete Time: 18:03 mn 01/24 17:26 Order name: EKG; Complete Time: 17:27 mn 01/24 17:26 Order name: EKG - Nurse/Tech; Complete Time: 17:36 mn 01/24 17:26 Order name: IV Saline Lock; Complete Time: 18:03 mn 01/24 17:26 Order name: Labs collected and sent; Complete Time: 18:03 mn 01/24 17:26 Order name: Urine Dipstick-Ancillary (obtain specimen); Complete Time: 18:03 mn 01/24 17:59 Order name: Abdomen Exam Limited; Complete Time: 18:58 EDMS Administered Medications: 17:55 Drug: Ativan 0.5 mg Route: IVP; Site: left antecubital; ph 19:35 Follow up: Response: No adverse reaction ph 17:55 Drug: NS 0.9% 500 ml Route: IV; Rate: bolus; Site: left antecubital; ph 19:34 Follow up: Response: No adverse reaction; IV Status: Completed infusion ph 17:55 Drug: Thiamine 100 mg Route: IM; Site: left deltoid; ph 19:34 Follow up: Response: No adverse reaction ph 19:19 Drug: Potassium Effervescent Tablet 50 mEq Route: PO; ph 19:34 Follow up: Response: No adverse reaction ph Disposition: 01/24/18 19:10 Discharged to Home. Impression: lower extremity edema, hypokalemia, alcoholic liver disease. - Condition is Stable. - Discharge Instructions: Edema, [id number], Alcoholic Liver Disease, [id number], Hypokalemia. - Prescriptions for Potassium Chloride 20 meq Oral Packet - take 1 packet by ORAL route every 12 hours 1 packet in 6 (six) ounces of water or juice; Take after meal; 15 packet. Ativan 0.5 mg Oral Tablet - take 1 tablet by ORAL route every 12 hours As needed; 10 tablet. - Medication Reconciliation Form, Thank You Letter, Antibiotic Education, Prescription Opioid Use form. - Follow up: Lester Thomas MD; When: 1 - 2 days; Reason: Re-evaluation by your physician. - Problem is an acute exacerbation. - Symptoms have improved. - Notes: you need to quit driking alcohol. take potassium for low potassium. follow up with Dr. Thomas, the gastro doctor for further evaluation Signatures: Dispatcher [employer] EDMT Gracy Hernandez RN RN Ewa Davila RN RN [facility] MD wa Davies, Jonathon, RN RN [id number] Corrections: (The following items were deleted from the chart) 17:53 17:49 Abdomen Exam Complete ordered. [facility] EDMS 17:59 17:48 Abdomen Complete+US.RAD.BRZ ordered. [facility] EDMS 19:38 19:10 01/24/2018 19:10 Discharged to Home. Impression: lower extremity edema; jd3 hypokalemia; alcoholic liver disease. Condition is Stable. Forms are Medication Reconciliation Form, Thank You Letter, Antibiotic Education, Prescription Opioid Use. Follow up: Lester Thomas; When: 1 - 2 days; Reason: Re-evaluation by your physician. Problem is an acute exacerbation. Symptoms have improved. khushi
[2018-01-24] MEDS ORDERED: POTASSIUM 25 MEQ EFFERV TAB ONE (19:17)
--- NOTE | 2018-01-25 07:44 | EKG ---
Test Date: 2018-01-24 Test Time: 17:08:27 Community Product Specialist: JAYLEEN MEASUREMENT RESULTS: Intervals: Rate: 106 LA: 178 QRSD: 96 QT: 368 QTc: 488 [place]: P: 47 LA: 178 QRS: 51 T: 26 INTERPRETIVE STATEMENTS: Sinus tachycardia Otherwise normal ECG Compared to ECG 10/13/2015 10:04:59 No significant changes Electronically Signed On 01-25-18 07:43:41 HATCHERY MAN by Carlos Rod
== END 2018-01-24 19:38 | disposition home or self-care (01) ==
LOC: ER 16:38
DX: E87.6 Hypokalemia (principal); K70.9 Alcoholic liver disease, unspecified; F17.210 Nicotine dependence, cigarettes, uncomplicated; F10.20 Alcohol dependence, uncomplicated
CPT/HCPCS: 36415; 71045; 76705; 80048; 80076; 80307; 80320; 80329; 81003; 81025; 83690; 83880; 85025; 85610; 93005; 96361; 96372; 96374; 99284; J3411

== ENCOUNTER 2018-05-19 23:52 | Emergency (ER) | payer SELFPAY ==
--- OUTSIDE RECORDS SUMMARY | 2018-05-19 23:56 | XMS REPORT ---
:1990 [facility] Address [address] [place] [address] Care Team Providers Name Role Phone AMBREEN [...] (BEAKER) (test 87 mg/dL 70-110 TESTED AT [facility] [address] [facility] tase=8866) [facility] [address] POCT-GLUCOSE [id number] 13:39:00 Test Item Value Reference Range Comments POC-GLUCOSE METER (BEAKER) 83 mg/dL 70-110 TESTED AT [address] (test amxg=7463) [facility] [address] [id number] 09:49:00 Test Item Value Reference Range Comments PHOSPHORUS (BEAKER) (test whwt=900) 3.9 mg/dL 2.3-4.7 COMPREHENSIVE METABOLIC [id number] 09:49:00 Test Item Value Reference Range Comments TOTAL PROTEIN (BEAKER) 6.6 gm/dL 6.0-8.3 (test uqyp=549) ALBUMIN (BEAKER) (test 2.3 g/dL 3.5-5.0 hrdi=0576) ALKALINE PHOSPHATASE 122 U/L 40-150 (BEAKER) (test lzwe=458) BILIRUBIN TOTAL (BEAKER) 2.9 mg/dL 0.2-1.2 (test vqjq=325) SODIUM (BEAKER) (test 137 meq/L 136-145 jfcc=006) POTASSIUM (BEAKER) (test 3.5 meq/L 3.5-5.1 rvkv=908) CHLORIDE (BEAKER) (test 105 meq/L 98-107 kbws=200) CO2 (BEAKER) (test 26 meq/L 22-29 repi=546) BLOOD UREA NITROGEN 2 mg/dL 7-21 (BEAKER) (test bzff=670) CREATININE (BEAKER) (test 0.52 mg/dL 0.57-1.25 qcct=977) GLUCOSE RANDOM (BEAKER) 70 mg/dL 70-105 (test ceyw=342) CALCIUM (BEAKER) (test 8.5 mg/dL 8.4-10.2 rrnw=025) AST (SGOT) (BEAKER) (test 56 U/L 5-34 tmxg=295) ALT (SGPT) (BEAKER) (test 12 U/L 6-55 rlgt=065) EGFR (BEAKER) (test 143 mL/min/1.73 sq ESTIMATED GFR IS NOT lzor=6513) m ACCURATE CREATININE CLEARANCE IN PREDICTING GLOMERULAR FILTRATION RATE. ESTIMATED GFR IS NOT APPLICABLE FOR DIALYSIS PATIENTS. Specimen slightly ictericBILIRUBIN, [id number] 09:49:00 Test Item Value Reference Range Comments BILIRUBIN DIRECT (BEAKER) (test fasa=734) 1.9 mg/dL 0.1-0.5 CBC W/PLT COUNT & AUTO [id number] 07:14:00 Test Item Value Reference Range Comments WHITE BLOOD CELL COUNT (BEAKER) (test zbkl=337) 4.0 K/ L 3.5-10.5 RED BLOOD CELL COUNT (BEAKER) (test aqyd=756) 2.45 M/ L 3.93-5.22 HEMOGLOBIN (BEAKER) (test weiw=913) 7.6 GM/DL 11.2-15.7 HEMATOCRIT (BEAKER) (test gvfv=116) 24.9 % 34.1-44.9 MEAN CORPUSCULAR VOLUME (BEAKER) (test gzpe=194) 101.6 fL 79.4-94.8 MEAN CORPUSCULAR HEMOGLOBIN (BEAKER) (test 31.0 pg 25.6-32.2 alkb=221) MEAN CORPUSCULAR HEMOGLOBIN CONC (BEAKER) (test 30.5 GM/DL 32.2-35.5 xzha=915) RED CELL DISTRIBUTION WIDTH (BEAKER) (test 21.2 % 11.7-14.4 sfhk=724) PLATELET COUNT (BEAKER) (test ewtg=004) 104 K/CU MM 150-450 MEAN PLATELET VOLUME (BEAKER) (test kaec=736) 11.0 fL 9.4-12.3 NUCLEATED RED BLOOD CELLS (BEAKER) (test 0 /100 WBC 0-0 htwl=155) NEUTROPHILS RELATIVE PERCENT (BEAKER) (test 63 % sovc=359) LYMPHOCYTES RELATIVE PERCENT (BEAKER) (test 23 % lsdm=629) MONOCYTES RELATIVE PERCENT (BEAKER) (test 9 % obok=161) EOSINOPHILS RELATIVE PERCENT (BEAKER) (test 4 % jhxl=606) BASOPHILS RELATIVE PERCENT (BEAKER) (test 1 % obrp=371) NEUTROPHILS ABSOLUTE COUNT (BEAKER) (test 2.51 K/ L 1.56-6.13 nnfa=189) LYMPHOCYTES ABSOLUTE COUNT (BEAKER) (test 0.93 K/ L 1.18-3.74 wkae=667) MONOCYTES ABSOLUTE COUNT (BEAKER) (test 0.34 K/ L 0.24-0.36 kqda=300) EOSINOPHILS ABSOLUTE COUNT (BEAKER) (test 0.15 K/ L 0.04-0.36 qhyj=879) BASOPHILS ABSOLUTE COUNT (BEAKER) (test 0.03 K/ L 0.01-0.08 byro=235) IMMATURE GRANULOCYTES-RELATIVE PERCENT (BEAKER) 0 % 0-1 (test fshz=2435) POCT-GLUCOSE [id number] 06:44:00 Test Item Value Reference Range Comments POC-GLUCOSE METER (BEAKER) 76 mg/dL 70-110 TESTED AT [address] (test jlfj=3868) [place] [id number] POCT-GLUCOSE [id number] 19:09:00 Test Item Value Reference Range Comments POC-GLUCOSE METER (BEAKER) 89 mg/dL 70-110 TESTED AT [address] (test ncrh=2725) [place] [address] POCT-GLUCOSE [id number] 13:47:00 Test Item Value Reference Range Comments POC-GLUCOSE METER (BEAKER) 95 mg/dL 70-110 TESTED AT [address] (test alde=7662) [place] [address] [id number] 10:14:00 Test Item Value Reference Range Comments PHOSPHORUS (BEAKER) (test 3.7 mg/dL 2.3-4.7 Specimen moderately hemolyzed sreu=132) COMPREHENSIVE METABOLIC [id number] 10:14:00 Test Item Value Reference Range Comments TOTAL PROTEIN (BEAKER) 6.9 gm/dL 6.0-8.3 Specimen moderately (test gtmv=294) hemolyzed ALBUMIN (BEAKER) (test 2.3 g/dL 3.5-5.0 Specimen moderately tpkm=3331) hemolyzed ALKALINE PHOSPHATASE 138 U/L 40-150 (BEAKER) (test nnmi=026) BILIRUBIN TOTAL (BEAKER) 2.4 mg/dL 0.2-1.2 Specimen moderately (test xkcx=564) hemolyzed SODIUM (BEAKER) (test 135 meq/L 136-145 vxsv=032) POTASSIUM (BEAKER) (test 4.2 meq/L 3.5-5.1 Specimen moderately ucfn=764) hemolyzed CHLORIDE (BEAKER) (test 107 meq/L 98-107 uprt=742) CO2 (BEAKER) (test 21 meq/L 22-29 ipza=770) BLOOD UREA NITROGEN 2 mg/dL 7-21 (BEAKER) (test cjxq=097) CREATININE (BEAKER) (test 0.59 mg/dL 0.57-1.25 Specimen moderately dbar=049) hemolyzed GLUCOSE RANDOM (BEAKER) 73 mg/dL 70-105 (test eeui=035) CALCIUM (BEAKER) (test 8.2 mg/dL 8.4-10.2 bglv=404) AST (SGOT) (BEAKER) (test 73 U/L 5-34 Specimen moderately nspu=334) hemolyzed ALT (SGPT) (BEAKER) (test 15 U/L 6-55 Specimen moderately ppwv=791) hemolyzed EGFR (BEAKER) (test 123 mL/min/1.73 sq ESTIMATED GFR IS NOT gces=3965) m ACCURATE CREATININE CLEARANCE IN PREDICTING GLOMERULAR FILTRATION RATE. ESTIMATED GFR IS NOT APPLICABLE FOR DIALYSIS PATIENTS. BILIRUBIN, [id number] 10:14:00 Test Item Value Reference Range Comments BILIRUBIN DIRECT (BEAKER) 1.1 mg/dL 0.1-0.5 Specimen moderately hemolyzed (test ovmq=544) CBC W/PLT COUNT & AUTO [id number] 10:07:00 Test Item Value Reference Range Comments WHITE BLOOD CELL COUNT (BEAKER) (test hmyr=129) 5.2 K/ L 3.5-10.5 RED BLOOD CELL COUNT (BEAKER) (test ycmr=186) 2.39 M/ L 3.93-5.22 HEMOGLOBIN (BEAKER) (test ffcc=501) 7.4 GM/DL 11.2-15.7 HEMATOCRIT (BEAKER) (test ywoo=631) 24.3 % 34.1-44.9 MEAN CORPUSCULAR VOLUME (BEAKER) (test dytw=285) 101.7 fL 79.4-94.8 MEAN CORPUSCULAR HEMOGLOBIN (BEAKER) (test 31.0 pg 25.6-32.2 jacd=924) MEAN CORPUSCULAR HEMOGLOBIN CONC (BEAKER) (test 30.5 GM/DL 32.2-35.5 yskx=251) RED CELL DISTRIBUTION WIDTH (BEAKER) (test 21.2 % 11.7-14.4 wkvu=170) PLATELET COUNT (BEAKER) (test owtt=189) 78 K/CU MM 150-450 MEAN PLATELET VOLUME (BEAKER) (test azqt=858) 12.4 fL 9.4-12.3 NUCLEATED RED BLOOD CELLS (BEAKER) (test 0 /100 WBC 0-0 mptw=387) NEUTROPHILS RELATIVE PERCENT (BEAKER) (test 68 % adgb=749) LYMPHOCYTES RELATIVE PERCENT (BEAKER) (test 19 % clpn=059) MONOCYTES RELATIVE PERCENT (BEAKER) (test 7 % roeg=937) EOSINOPHILS RELATIVE PERCENT (BEAKER) (test 4 % ywoe=443) BASOPHILS RELATIVE PERCENT (BEAKER) (test 1 % lrfb=787) NEUTROPHILS ABSOLUTE COUNT (BEAKER) (test 3.54 K/ L 1.56-6.13 hgeh=888) LYMPHOCYTES ABSOLUTE COUNT (BEAKER) (test 1.00 K/ L 1.18-3.74 xzac=716) MONOCYTES ABSOLUTE COUNT (BEAKER) (test yzkt=738) 0.38 K/ L 0.24-0.36 EOSINOPHILS ABSOLUTE COUNT (BEAKER) (test 0.20 K/ L 0.04-0.36 puas=659) BASOPHILS ABSOLUTE COUNT (BEAKER) (test mlha=605) 0.04 K/ L 0.01-0.08 IMMATURE GRANULOCYTES-RELATIVE PERCENT (BEAKER) 0 % 0-1 (test ridm=1214) POCT-GLUCOSE [id number] 12:12:00 Test Item Value Reference Range Comments POC-GLUCOSE METER (BEAKER) 83 mg/dL 70-110 TESTED AT [facility] [address] [facility] (test xqvr=5811) [facility] [address] [id number] 07:30:00 Test Item Value Reference Range Comments PHOSPHORUS (BEAKER) (test uzzi=125) 1.9 mg/dL 2.3-4.7 COMPREHENSIVE METABOLIC [id number] 07:30:00 Test Item Value Reference Range Comments TOTAL PROTEIN (BEAKER) 6.5 gm/dL 6.0-8.3 (test uvsq=021) ALBUMIN (BEAKER) (test 2.3 g/dL 3.5-5.0 ljmz=8401) ALKALINE PHOSPHATASE 146 U/L 40-150 (BEAKER) (test dlbx=560) BILIRUBIN TOTAL (BEAKER) 2.7 mg/dL 0.2-1.2 (test vvrp=253) SODIUM (BEAKER) (test 137 meq/L 136-145 nccn=743) POTASSIUM (BEAKER) (test 4.0 meq/L 3.5-5.1 jaxp=504) CHLORIDE (BEAKER) (test 108 meq/L 98-107 swuk=849) CO2 (BEAKER) (test 23 meq/L 22-29 lvyf=993) BLOOD UREA NITROGEN 2 mg/dL 7-21 (BEAKER) (test xvef=416) CREATININE (BEAKER) (test 0.59 mg/dL 0.57-1.25 fybx=244) GLUCOSE RANDOM (BEAKER) 79 mg/dL 70-105 (test xfji=037) CALCIUM (BEAKER) (test 8.2 mg/dL 8.4-10.2 bcjf=649) AST (SGOT) (BEAKER) (test 75 U/L 5-34 uioj=225) ALT (SGPT) (BEAKER) (test 15 U/L 6-55 murr=220) EGFR (BEAKER) (test 123 mL/min/1.73 sq ESTIMATED GFR IS NOT hgtk=8367) m ACCURATE CREATININE CLEARANCE IN PREDICTING GLOMERULAR FILTRATION RATE. ESTIMATED GFR IS NOT APPLICABLE FOR DIALYSIS PATIENTS. Specimen slightly ictericBILIRUBIN, [id number] 07:30:00 Test Item Value Reference Range Comments BILIRUBIN DIRECT (BEAKER) (test kvzq=691) 1.7 mg/dL 0.1-0.5 PROTHROMBIN [id number] 07:06:00 Test Item Value Reference Range Comments PROTIME (BEAKER) (test zbdo=008) 18.2 seconds 11.7-14.7 INR (BEAKER) (test uzzm=861) 1.5 <=5.9 RECOMMENDED COUMADIN/WARFARIN INR THERAPY RANGESSTANDARD DOSE: 2.0 - 3.0 Includes: PROPHYLAXIS forvenous thrombosis, systemic embolization; TREATMENT for venous thrombosis and/or pulmonary embolus.HIGH RISK: Target INR is 2.5-3.5 for patients with mechanical heart valves.CBC W/PLT COUNT & AUTO [id number] 06:50:00 Test Item Value Reference Range Comments WHITE BLOOD CELL COUNT (BEAKER) (test ovns=984) 5.2 K/ L 3.5-10.5 RED BLOOD CELL COUNT (BEAKER) (test ggcb=532) 2.47 M/ L 3.93-5.22 HEMOGLOBIN (BEAKER) (test hwvo=618) 7.7 GM/DL 11.2-15.7 HEMATOCRIT (BEAKER) (test vwfi=653) 25.0 % 34.1-44.9 MEAN CORPUSCULAR VOLUME (BEAKER) (test zadi=708) 101.2 fL 79.4-94.8 MEAN CORPUSCULAR HEMOGLOBIN (BEAKER) (test 31.2 pg 25.6-32.2 kndy=308) MEAN CORPUSCULAR HEMOGLOBIN CONC (BEAKER) (test 30.8 GM/DL 32.2-35.5 oxyu=063) RED CELL DISTRIBUTION WIDTH (BEAKER) (test 20.4 % 11.7-14.4 hqmu=948) PLATELET COUNT (BEAKER) (test mdpg=090) 92 K/CU MM 150-450 MEAN PLATELET VOLUME (BEAKER) (test fykt=690) 10.7 fL 9.4-12.3 NUCLEATED RED BLOOD CELLS (BEAKER) (test 0 /100 WBC 0-0 hmfp=685) NEUTROPHILS RELATIVE PERCENT (BEAKER) (test 65 % baxb=124) LYMPHOCYTES RELATIVE PERCENT (BEAKER) (test 24 % wgzx=994) MONOCYTES RELATIVE PERCENT (BEAKER) (test 6 % izkk=436) EOSINOPHILS RELATIVE PERCENT (BEAKER) (test 4 % tmci=775) BASOPHILS RELATIVE PERCENT (BEAKER) (test 1 % drvn=519) NEUTROPHILS ABSOLUTE COUNT (BEAKER) (test 3.39 K/ L 1.56-6.13 fuwa=044) LYMPHOCYTES ABSOLUTE COUNT (BEAKER) (test 1.22 K/ L 1.18-3.74 fotb=744) MONOCYTES ABSOLUTE COUNT (BEAKER) (test eaop=836) 0.33 K/ L 0.24-0.36 EOSINOPHILS ABSOLUTE COUNT (BEAKER) (test 0.20 K/ L 0.04-0.36 pjap=033) BASOPHILS ABSOLUTE COUNT (BEAKER) (test eurz=006) 0.03 K/ L 0.01-0.08 IMMATURE GRANULOCYTES-RELATIVE PERCENT (BEAKER) 0 % 0-1 (test ueil=5202) POCT-GLUCOSE [id number] 12:42:00 Test Item Value Reference Range Comments POC-GLUCOSE METER (BEAKER) 109 mg/dL 70-110 TESTED AT [address] (test cqzr=6419) [facility] [address] POCT-GLUCOSE [id number] 06:17:00 Test Item Value Reference Range Comments POC-GLUCOSE METER (BEAKER) 153 mg/dL 70-110 TESTED AT [address] (test sqqn=1802) [facility] [address] [id number] 05:03:00 Test Item Value Reference Range Comments PHOSPHORUS (BEAKER) (test ieri=525) 2.0 mg/dL 2.3-4.7 COMPREHENSIVE METABOLIC [id number] 05:03:00 Test Item Value Reference Range Comments TOTAL PROTEIN (BEAKER) 6.5 gm/dL 6.0-8.3 (test mtfm=228) ALBUMIN (BEAKER) (test 2.3 g/dL 3.5-5.0 pefq=6022) ALKALINE PHOSPHATASE 138 U/L 40-150 (BEAKER) (test yfxl=105) BILIRUBIN TOTAL (BEAKER) 3.1 mg/dL 0.2-1.2 (test zhbf=918) SODIUM (BEAKER) (test 134 meq/L 136-145 tpid=089) POTASSIUM (BEAKER) (test 3.7 meq/L 3.5-5.1 avbh=377) CHLORIDE (BEAKER) (test 106 meq/L 98-107 oqiz=257) CO2 (BEAKER) (test 24 meq/L 22-29 hxuw=788) BLOOD UREA NITROGEN 2 mg/dL 7-21 (BEAKER) (test ekqf=536) CREATININE (BEAKER) (test 0.63 mg/dL 0.57-1.25 bvdk=210) GLUCOSE RANDOM (BEAKER) 126 mg/dL 70-105 (test sokb=574) CALCIUM (BEAKER) (test 8.0 mg/dL 8.4-10.2 ntsf=312) AST (SGOT) (BEAKER) (test 85 U/L 5-34 purf=375) ALT (SGPT) (BEAKER) (test 17 U/L 6-55 wxhl=851) EGFR (BEAKER) (test 114 mL/min/1.73 sq ESTIMATED GFR IS NOT yhwg=2559) m ACCURATE CREATININE CLEARANCE IN PREDICTING GLOMERULAR FILTRATION RATE. ESTIMATED GFR IS NOT APPLICABLE FOR DIALYSIS PATIENTS. Specimen slightly ictericBILIRUBIN, [id number] 05:03:00 Test Item Value Reference Range Comments BILIRUBIN DIRECT (BEAKER) (test lgba=585) 2.1 mg/dL 0.1-0.5 PROTHROMBIN [id number] 04:49:00 Test Item Value Reference Range Comments PROTIME (BEAKER) (test domd=632) 18.2 seconds 11.7-14.7 INR (BEAKER) (test ofqj=277) 1.5 <=5.9 RECOMMENDED COUMADIN/WARFARIN INR THERAPY RANGESSTANDARD DOSE: 2.0 - 3.0 Includes: PROPHYLAXIS forvenous thrombosis, systemic embolization; TREATMENT for venous thrombosis and/or pulmonary embolus.HIGH RISK: Target INR is 2.5-3.5 for patients with mechanical heart valves.CBC W/PLT COUNT & AUTO [id number] 04:48:00 Test Item Value Reference Range Comments WHITE BLOOD CELL COUNT (BEAKER) (test klfp=861) 5.0 K/ L 3.5-10.5 RED BLOOD CELL COUNT (BEAKER) (test lkot=266) 2.38 M/ L 3.93-5.22 HEMOGLOBIN (BEAKER) (test yvfw=610) 7.4 GM/DL 11.2-15.7 HEMATOCRIT (BEAKER) (test efwx=182) 23.5 % 34.1-44.9 MEAN CORPUSCULAR VOLUME (BEAKER) (test iyzz=215) 98.7 fL 79.4-94.8 MEAN CORPUSCULAR HEMOGLOBIN (BEAKER) (test 31.1 pg 25.6-32.2 veak=314) MEAN CORPUSCULAR HEMOGLOBIN CONC (BEAKER) (test 31.5 GM/DL 32.2-35.5 icjg=595) RED CELL DISTRIBUTION WIDTH (BEAKER) (test 20.1 % 11.7-14.4 koiq=861) PLATELET COUNT (BEAKER) (test qipg=402) 58 K/CU MM 150-450 MEAN PLATELET VOLUME (BEAKER) (test giam=016) 11.1 fL 9.4-12.3 NUCLEATED RED BLOOD CELLS (BEAKER) (test 0 /100 WBC 0-0 wzcs=237) NEUTROPHILS RELATIVE PERCENT (BEAKER) (test 70 % wosd=169) LYMPHOCYTES RELATIVE PERCENT (BEAKER) (test 19 % zpad=384) MONOCYTES RELATIVE PERCENT (BEAKER) (test 7 % sazi=399) EOSINOPHILS RELATIVE PERCENT (BEAKER) (test 4 % fsiu=660) BASOPHILS RELATIVE PERCENT (BEAKER) (test 0 % gsaz=466) NEUTROPHILS ABSOLUTE COUNT (BEAKER) (test 3.49 K/ L 1.56-6.13 lccv=723) LYMPHOCYTES ABSOLUTE COUNT (BEAKER) (test 0.93 K/ L 1.18-3.74 lftj=335) MONOCYTES ABSOLUTE COUNT (BEAKER) (test mncu=458) 0.33 K/ L 0.24-0.36 EOSINOPHILS ABSOLUTE COUNT (BEAKER) (test 0.19 K/ L 0.04-0.36 mkiz=936) BASOPHILS ABSOLUTE COUNT (BEAKER) (test miub=690) 0.02 K/ L 0.01-0.08 IMMATURE GRANULOCYTES-RELATIVE PERCENT (BEAKER) 0 % 0-1 (test qxpz=6947) POCT-GLUCOSE [id number] 00:49:00 Test Item Value Reference Range Comments POC-GLUCOSE METER (BEAKER) 132 mg/dL 70-110 TESTED AT [facility] [address] [facility] (test mwar=2412) [facility] [address] POCT-GLUCOSE [id number] 18:40:00 Test Item Value Reference Range Comments POC-GLUCOSE METER (BEAKER) 197 mg/dL 70-110 TESTED AT [facility] [address] (test zzag=8240) [place] [address] [id number] 17:26:00 Test Item Value Reference Range Comments MAGNESIUM (BEAKER) (test qtaa=159) 2.5 mg/dL 1.6-2.6 [id number] 17:26:00 Test Item Value Reference Range Comments POTASSIUM (BEAKER) (test bgrg=889) 3.6 meq/L 3.5-5.1 VITAMIN B12 AND [id number] 17:24:00 Test Item Value Reference Range Comments VITAMIN B12 (BEAKER) (test gjmh=097) 767 pg/mL 213-816 FOLATE (BEAKER) (test vxhh=122) 11.4 ng/mL >=7.0 [id number] 16:52:00 Test Item Value Reference Range Comments MAGNESIUM (BEAKER) (test 4.6 mg/dL 1.6-2.6 Specimen being redrawn, qzrn=190) markedly hemolyzedThis is a corrected result. Previous result was 4.6 mg/dL on 01/04/2018 at 1644 OIL[employer] HELPER RN notifiedURINALYSIS W/ REFLEX URINE [id number] 16:37:00 Test Item Value Reference Range Comments COLOR (BEAKER) (test odgj=749) Jaida CLARITY (BEAKER) (test fhzx=466) Hazy SPECIFIC GRAVITY UA (BEAKER) (test gsbs=538) 1.028 1.001-1.035 PH UA (BEAKER) (test ctdj=131) 6.0 5.0-8.0 PROTEIN UA (BEAKER) (test yjyo=354) 70 mg/dL Negative GLUCOSE UA (BEAKER) (test upmg=896) Negative Negative KETONES UA (BEAKER) (test fjtb=455) Negative Negative BILIRUBIN UA (BEAKER) (test hafn=455) Positive Negative BLOOD UA (BEAKER) (test cjsb=096) Trace Negative NITRITE UA (BEAKER) (test psbo=693) Negative Negative LEUKOCYTE ESTERASE UA (BEAKER) (test vgbr=115) Negative Negative UROBILINOGEN UA (BEAKER) (test djem=287) 0.2 mg/dL 0.2-1.0 RBC UA (BEAKER) (test pdkd=766) < /HPF WBC UA (BEAKER) (test sxfe=107) 2 /HPF MUCUS (BEAKER) (test hoqc=3654) Few SQUAMOUS EPITHELIAL (BEAKER) (test xwns=281) 11 /HPF HYALINE CASTS (BEAKER) (test khoj=357) 2 /LPF SOURCE(BEAKER) (test rzxl=7869) CBC W/PLT COUNT & AUTO [id number] 16:36:00 Test Item Value Reference Range Comments WHITE BLOOD CELL COUNT (BEAKER) (test ckct=847) 5.6 K/ L 3.5-10.5 RED BLOOD CELL COUNT (BEAKER) (test whgi=808) 2.52 M/ L 3.93-5.22 HEMOGLOBIN (BEAKER) (test xrnf=414) 7.8 GM/DL 11.2-15.7 HEMATOCRIT (BEAKER) (test ilms=407) 25.2 % 34.1-44.9 MEAN CORPUSCULAR VOLUME (BEAKER) (test eyhl=468) 100.0 fL 79.4-94.8 MEAN CORPUSCULAR HEMOGLOBIN (BEAKER) (test 31.0 pg 25.6-32.2 hqvd=520) MEAN CORPUSCULAR HEMOGLOBIN CONC (BEAKER) (test 31.0 GM/DL 32.2-35.5 pssr=497) RED CELL DISTRIBUTION WIDTH (BEAKER) (test 21.9 % 11.7-14.4 vpkn=712) PLATELET COUNT (BEAKER) (test plxe=378) 112 K/CU MM 150-450 MEAN PLATELET VOLUME (BEAKER) (test wmbv=646) 13.4 fL 9.4-12.3 NUCLEATED RED BLOOD CELLS (BEAKER) (test 0 /100 WBC 0-0 aztg=441) NEUTROPHILS RELATIVE PERCENT (BEAKER) (test 74 % rbfd=097) LYMPHOCYTES RELATIVE PERCENT (BEAKER) (test 17 % yrts=532) MONOCYTES RELATIVE PERCENT (BEAKER) (test 5 % ehkr=423) EOSINOPHILS RELATIVE PERCENT (BEAKER) (test 3 % enqk=307) BASOPHILS RELATIVE PERCENT (BEAKER) (test 1 % nclp=465) NEUTROPHILS ABSOLUTE COUNT (BEAKER) (test 4.13 K/ L 1.56-6.13 mlxi=857) LYMPHOCYTES ABSOLUTE COUNT (BEAKER) (test 0.93 K/ L 1.18-3.74 akac=273) MONOCYTES ABSOLUTE COUNT (BEAKER) (test 0.25 K/ L 0.24-0.36 wejq=335) EOSINOPHILS ABSOLUTE COUNT (BEAKER) (test 0.19 K/ L 0.04-0.36 loty=131) BASOPHILS ABSOLUTE COUNT (BEAKER) (test 0.03 K/ L 0.01-0.08 swhj=556) IMMATURE GRANULOCYTES-RELATIVE PERCENT (BEAKER) 0 % 0-1 (test ahfs=8398) POCT-GLUCOSE [id number] 11:41:00 Test Item Value Reference Range Comments POC-GLUCOSE METER (BEAKER) 189 mg/dL 70-110 TESTED AT [facility] [address] [place] [address] (test zult=0409) [facility] [address] RAPID DRUG SCREEN, [id number] 09:45:00 Test Item Value Reference Range Comments BARBITURATE URINE (BEAKER) (test eids=554) Negative Negative BENZODIAZEPINE SCREEN URINE (BEAKER) (test Negative Negative rzhg=998) COCAINE (METAB.) SCREEN (BEAKER) (test klqw=5061) Negative Negative METHADONE SCREEN (BEAKER) (test obdn=6765) Negative Negative OPIATE SCREEN URINE (BEAKER) (test lpvf=129) Positive Negative CANNABINOID SCREEN URINE (BEAKER) (test ngho=807) Negative Negative AMPH/METHAMPH SCREEN (BEAKER) (test orwe=3586) Negative Negative PHENCYCLIDINE SCREEN URINE (BEAKER) (test dhhm=711) Negative Negative OXYCODONE SCREEN URINE (BEAKER) (test skgn=9805) Negative Negative DRUG CUTOFF CONC.Cocaine 300 ng/mL Cannabinoid 50 ng/mL Benzodiazepine 200 ng/mLBarbiturate 200 ng/ mLPhencyclidine 25 ng/mLOpiate 300 ng/mLMethadone 300 ng/mLAmphetamine/ 1000 ng/mL MethamphetamineOxycodone 300 ng/mLThis assay provides an unconfirmed qualitative test result for the clinical management of patients in emergency situations. Chain of custody not maintained. Some ibjx-cai-vqyegkk medications, as well as adulterants, may cause inaccurate results. Clinical correlation should be applied. A more comprehensive drug screen or confirmation of a detected drug may be performed upon request. SCREEN, [id number] 09:26:00 Test Item Value Reference Range Comments TEST URINE (BEAKER) (test lrqk=445) Negative [id number] 08:20:00 Test Item Value Reference Range Comments MAGNESIUM (BEAKER) (test hgpy=948) 2.0 mg/dL 1.6-2.6 POCT-GLUCOSE [id number] 06:05:00 Test Item Value Reference Range Comments POC-GLUCOSE METER (BEAKER) 169 mg/dL 70-110 TESTED AT [facility] [address] [facility] (test ohku=4167) [facility] [address] HEPATITIS A ANTIBODY, [id number] 05:03:00 Test Item Value Reference Range Comments HEPATITIS A IGG ANTIBODY (BEAKER) (test nojd=3725) Reactive Nonreactive HEPATITIS B SURFACE [id number] 04:51:00 Test Item Value Reference Range Comments HEPATITIS B SURFACE ANTIBODY (BEAKER) (test < mIU/mL <8.0 fmhr=089) HEPATITIS B SURFACE [id number] 04:36:00 Test Item Value Reference Range Comments HEPATITIS B SURFACE ANTIGEN (2) (BEAKER) (test Nonreactive Nonreactive nxod=3723) HEPATITIS C [id number] 04:36:00 Test Item Value Reference Range Comments HEPATITIS C ANTIBODY (BEAKER) (test ndba=200) Nonreactive Nonreactive HEPATITIS A ANTIBODY, [id number] 04:36:00 Test Item Value Reference Range Comments HEPATITIS A IGM ANTIBODY (BEAKER) (test Nonreactive Nonreactive urul=223) HEPATITIS B CORE ANTIBODY, [id number] 04:36:00 Test Item Value Reference Range Comments HEPATITIS B CORE TOTAL ANTIBODY (BEAKER) (test Nonreactive Nonreactive duug=996) COMPREHENSIVE METABOLIC [id number] 04:17:00 Test Item Value Reference Range Comments TOTAL PROTEIN (BEAKER) 6.9 gm/dL 6.0-8.3 (test fceu=156) ALBUMIN (BEAKER) (test 2.4 g/dL 3.5-5.0 atcr=3454) ALKALINE PHOSPHATASE 154 U/L 40-150 (BEAKER) (test qmhd=902) BILIRUBIN TOTAL (BEAKER) 4.2 mg/dL 0.2-1.2 (test qsvl=661) SODIUM (BEAKER) (test 132 meq/L 136-145 rspr=807) POTASSIUM (BEAKER) (test 3.3 meq/L 3.5-5.1 fsev=686) CHLORIDE (BEAKER) (test 101 meq/L 98-107 gtti=423) CO2 (BEAKER) (test 24 meq/L 22-29 xcct=492) BLOOD UREA NITROGEN 2 mg/dL 7-21 (BEAKER) (test nblc=058) CREATININE (BEAKER) (test 0.70 mg/dL 0.57-1.25 bhwj=069) GLUCOSE RANDOM (BEAKER) 149 mg/dL 70-105 (test oqbp=850) CALCIUM (BEAKER) (test 7.5 mg/dL 8.4-10.2 ecrv=762) AST (SGOT) (BEAKER) (test 81 U/L 5-34 jxwk=146) ALT (SGPT) (BEAKER) (test 15 U/L 6-55 ucbp=043) EGFR (BEAKER) (test 101 mL/min/1.73 sq ESTIMATED GFR IS NOT fjwv=6543) m ACCURATE CREATININE CLEARANCE IN PREDICTING GLOMERULAR FILTRATION RATE. ESTIMATED GFR IS NOT APPLICABLE FOR DIALYSIS PATIENTS. Specimen moderately ictericPROTHROMBIN [id number] 04:12:00 Test Item Value Reference Range Comments PROTIME (BEAKER) (test fjtj=362) 18.2 seconds 11.7-14.7 INR (BEAKER) (test gkkg=169) 1.5 <=5.9 RECOMMENDED COUMADIN/WARFARIN INR THERAPY RANGESSTANDARD DOSE: 2.0 - 3.0 Includes: PROPHYLAXIS forvenous thrombosis, systemic embolization; TREATMENT for venous thrombosis and/or pulmonary embolus.HIGH RISK: Target INR is 2.5-3.5 for patients with mechanical heart valves.CBC W/PLT COUNT & AUTO [id number] 04:07:00 Test Item Value Reference Range Comments WHITE BLOOD CELL COUNT (BEAKER) (test dkqa=958) 5.9 K/ L 3.5-10.5 RED BLOOD CELL COUNT (BEAKER) (test pzpo=242) 2.41 M/ L 3.93-5.22 HEMOGLOBIN (BEAKER) (test cdwy=175) 7.5 GM/DL 11.2-15.7 HEMATOCRIT (BEAKER) (test tdvn=605) 23.1 % 34.1-44.9 MEAN CORPUSCULAR VOLUME (BEAKER) (test cuct=597) 95.9 fL 79.4-94.8 MEAN CORPUSCULAR HEMOGLOBIN (BEAKER) (test 31.1 pg 25.6-32.2 sfkv=887) MEAN CORPUSCULAR HEMOGLOBIN CONC (BEAKER) (test 32.5 GM/DL 32.2-35.5 vkjv=205) RED CELL DISTRIBUTION WIDTH (BEAKER) (test 19.4 % 11.7-14.4 ytes=947) PLATELET COUNT (BEAKER) (test qegh=006) 84 K/CU MM 150-450 MEAN PLATELET VOLUME (BEAKER) (test cwve=227) 10.2 fL 9.4-12.3 NUCLEATED RED BLOOD CELLS (BEAKER) (test 0 /100 WBC 0-0 byvl=212) NEUTROPHILS RELATIVE PERCENT (BEAKER) (test 67 % ngys=060) LYMPHOCYTES RELATIVE PERCENT (BEAKER) (test 21 % rbef=493) MONOCYTES RELATIVE PERCENT (BEAKER) (test 7 % mrcc=816) EOSINOPHILS RELATIVE PERCENT (BEAKER) (test 3 % mklc=021) BASOPHILS RELATIVE PERCENT (BEAKER) (test 1 % zkad=599) NEUTROPHILS ABSOLUTE COUNT (BEAKER) (test 3.94 K/ L 1.56-6.13 imhj=691) LYMPHOCYTES ABSOLUTE COUNT (BEAKER) (test 1.25 K/ L 1.18-3.74 ezco=440) MONOCYTES ABSOLUTE COUNT (BEAKER) (test zfzz=679) 0.43 K/ L 0.24-0.36 EOSINOPHILS ABSOLUTE COUNT (BEAKER) (test 0.15 K/ L 0.04-0.36 kvty=506) BASOPHILS ABSOLUTE COUNT (BEAKER) (test vzzy=457) 0.04 K/ L 0.01-0.08 IMMATURE GRANULOCYTES-RELATIVE PERCENT (BEAKER) 1 % 0-1 (test bdle=0570) CBC W/PLT COUNT & AUTO [id number] 00:45:00 Test Item Value Reference Range Comments WHITE BLOOD CELL COUNT (BEAKER) (test lymb=364) 6.2 K/ L 3.5-10.5 RED BLOOD CELL COUNT (BEAKER) (test ckxw=577) 2.33 M/ L 3.93-5.22 HEMOGLOBIN (BEAKER) (test svqt=064) 7.2 GM/DL 11.2-15.7 HEMATOCRIT (BEAKER) (test tlvv=775) 22.8 % 34.1-44.9 MEAN CORPUSCULAR VOLUME (BEAKER) (test psmt=205) 97.9 fL 79.4-94.8 MEAN CORPUSCULAR HEMOGLOBIN (BEAKER) (test 30.9 pg 25.6-32.2 phib=330) MEAN CORPUSCULAR HEMOGLOBIN CONC (BEAKER) (test 31.6 GM/DL 32.2-35.5 krzt=863) RED CELL DISTRIBUTION WIDTH (BEAKER) (test 19.2 % 11.7-14.4 ylev=307) PLATELET COUNT (BEAKER) (test qxaq=472) 72 K/CU MM 150-450 MEAN PLATELET VOLUME (BEAKER) (test qukg=353) 11.1 fL 9.4-12.3 NUCLEATED RED BLOOD CELLS (BEAKER) (test 0 /100 WBC 0-0 oflo=754) NEUTROPHILS RELATIVE PERCENT (BEAKER) (test 71 % atcc=233) LYMPHOCYTES RELATIVE PERCENT (BEAKER) (test 19 % hwuh=030) MONOCYTES RELATIVE PERCENT (BEAKER) (test 7 % ocjx=977) EOSINOPHILS RELATIVE PERCENT (BEAKER) (test 2 % epvh=606) BASOPHILS RELATIVE PERCENT (BEAKER) (test 1 % wapk=771) NEUTROPHILS ABSOLUTE COUNT (BEAKER) (test 4.39 K/ L 1.56-6.13 ujet=648) LYMPHOCYTES ABSOLUTE COUNT (BEAKER) (test 1.17 K/ L 1.18-3.74 zwvu=631) MONOCYTES ABSOLUTE COUNT (BEAKER) (test jgdi=381) 0.42 K/ L 0.24-0.36 EOSINOPHILS ABSOLUTE COUNT (BEAKER) (test 0.12 K/ L 0.04-0.36 mjqn=200) BASOPHILS ABSOLUTE COUNT (BEAKER) (test amyj=245) 0.03 K/ L 0.01-0.08 IMMATURE GRANULOCYTES-RELATIVE PERCENT (BEAKER) 1 % 0-1 (test nvnr=6251) POCT-GLUCOSE [id number] 23:55:00 Test Item Value Reference Range Comments POC-GLUCOSE METER (BEAKER) 218 mg/dL 70-110 TESTED AT [facility] [address] [facility] (test xcgh=6014) [place] [address] POCT-GLUCOSE [id number] 18:34:00 Test Item Value Reference Range Comments POC-GLUCOSE METER (BEAKER) 270 mg/dL 70-110 TESTED AT [facility] [address] (test jjrx=5602) [facility] [address] U/S, ABDOMINAL, [id number] 16:54:00Abdomen limited area? Add comment if clarification [...] Forrest Verified Date/Time: 2017 16:54:35 Reading Location: [address] Ultrasound Reading Room COMPREHENSIVE METABOLIC [id number] 14:29:00 Test Item Value Reference Range Comments TOTAL PROTEIN (BEAKER) 6.9 gm/dL 6.0-8.3 (test izjp=013) ALBUMIN (BEAKER) (test 2.5 g/dL 3.5-5.0 bmnl=1308) ALKALINE PHOSPHATASE 157 U/L 40-150 (BEAKER) (test sakj=075) BILIRUBIN TOTAL (BEAKER) 3.7 mg/dL 0.2-1.2 (test uxvy=760) SODIUM (BEAKER) (test 135 meq/L 136-145 rxer=713) POTASSIUM (BEAKER) (test 3.1 meq/L 3.5-5.1 wisf=579) CHLORIDE (BEAKER) (test 100 meq/L 98-107 iasr=249) CO2 (BEAKER) (test 19 meq/L 22-29 fpfa=633) BLOOD UREA NITROGEN 2 mg/dL 7-21 (BEAKER) (test qzdl=747) CREATININE (BEAKER) (test 0.55 mg/dL 0.57-1.25 dcdf=910) GLUCOSE RANDOM (BEAKER) 60 mg/dL 70-105 (test txmn=692) CALCIUM (BEAKER) (test 7.4 mg/dL 8.4-10.2 ztxj=795) AST (SGOT) (BEAKER) (test 98 U/L 5-34 jooj=152) ALT (SGPT) (BEAKER) (test 17 U/L 6-55 gcoq=549) EGFR (BEAKER) (test 134 mL/min/1.73 sq ESTIMATED GFR IS NOT rajy=8589) m ACCURATE CREATININE CLEARANCE IN PREDICTING GLOMERULAR FILTRATION RATE. ESTIMATED GFR IS NOT APPLICABLE FOR DIALYSIS PATIENTS. Specimen slightly [id number] 14:28:00 Test Item Value Reference Range Comments MAGNESIUM (BEAKER) (test vwbj=782) 1.3 mg/dL 1.6-2.6 [id number] 14:28:00 Test Item Value Reference Range Comments LIPASE (BEAKER) (test ptlq=142) 11 U/L 8-78 Specimen slightly ictericPT/[id number] 13:56:00 Test Item Value Reference Range Comments PROTIME (BEAKER) (test vwfq=077) 18.4 seconds 11.7-14.7 INR (BEAKER) (test pobm=874) 1.5 <=5.9 PARTIAL THROMBOPLASTIN TIME (BEAKER) (test 45.0 seconds 22.5-36.0 knny=232) RECOMMENDED COUMADIN/WARFARIN INR THERAPY RANGESSTANDARD DOSE: 2.0 - 3.0 Includes: PROPHYLAXIS forvenous thrombosis, systemic embolization; TREATMENT for venous thrombosis and/or pulmonary embolus.HIGH RISK: Target INR is 2.5-3.5 for patients with mechanical heart valves.CBC W/PLT COUNT & AUTO [id number] 13:50:00 Test Item Value Reference Range Comments WHITE BLOOD CELL COUNT (BEAKER) (test rgxq=506) 6.2 K/ L 3.5-10.5 RED BLOOD CELL COUNT (BEAKER) (test lrsp=652) 2.12 M/ L 3.93-5.22 HEMOGLOBIN (BEAKER) (test acak=682) 6.5 GM/DL 11.2-15.7 HEMATOCRIT (BEAKER) (test buqv=780) 20.9 % 34.1-44.9 MEAN CORPUSCULAR VOLUME (BEAKER) (test qqxv=118) 98.6 fL 79.4-94.8 MEAN CORPUSCULAR HEMOGLOBIN (BEAKER) (test 30.7 pg 25.6-32.2 opgd=444) MEAN CORPUSCULAR HEMOGLOBIN CONC (BEAKER) (test 31.1 GM/DL 32.2-35.5 xxzz=312) RED CELL DISTRIBUTION WIDTH (BEAKER) (test 19.2 % 11.7-14.4 pdxs=951) PLATELET COUNT (BEAKER) (test oxvw=782) 83 K/CU MM 150-450 MEAN PLATELET VOLUME (BEAKER) (test fpxq=455) 11.0 fL 9.4-12.3 NUCLEATED RED BLOOD CELLS (BEAKER) (test 0 /100 WBC 0-0 lbwq=298) NEUTROPHILS RELATIVE PERCENT (BEAKER) (test 79 % xogn=751) LYMPHOCYTES RELATIVE PERCENT (BEAKER) (test 14 % yxme=625) MONOCYTES RELATIVE PERCENT (BEAKER) (test 5 % dghe=170) EOSINOPHILS RELATIVE PERCENT (BEAKER) (test 1 % eicz=380) BASOPHILS RELATIVE PERCENT (BEAKER) (test 1 % kjbr=108) NEUTROPHILS ABSOLUTE COUNT (BEAKER) (test 4.89 K/ L 1.56-6.13 vpev=315) LYMPHOCYTES ABSOLUTE COUNT (BEAKER) (test 0.88 K/ L 1.18-3.74 cqff=702) MONOCYTES ABSOLUTE COUNT (BEAKER) (test scni=253) 0.33 K/ L 0.24-0.36 EOSINOPHILS ABSOLUTE COUNT (BEAKER) (test 0.03 K/ L 0.04-0.36 efnr=014) BASOPHILS ABSOLUTE COUNT (BEAKER) (test ilcq=699) 0.03 K/ L 0.01-0.08 IMMATURE GRANULOCYTES-RELATIVE PERCENT (BEAKER) 1 % 0-1 (test gkuv=3141)
[2018-05-20 00:44] LABS: Protime INR 1.87
[2018-05-20 00:47] LABS: Absolute Lymphocytes (CBC) 2.2 K/uL (0.7-4.9); Absolute Monocytes 0.7 K/uL (0.1-1.3); Basophils % 0.7 % (0-1.3); Eosinophils % 1.7 % (0-4.4); Lymphocytes % 19.4 % (15.3-44.8); MPV 8.2 fL (7.6-11.3); Monocytes % 6.6 % (3.3-12.3); RBC Red Blood Cell Count 1.51 M/uL (3.86-4.86)
[2018-05-20 00:53] LABS: ALT/SGPT 21 U/L (12-78); AST/SGOT 61 U/L (15-37); Albumin 1.8 g/dL (3.4-5.0); Alkaline Phosphatase 200 U/L (45-117); BUN Blood Urea Nitrogen 6 mg/dL (7-18); Bicarbonate 26 mmol/L (21-32); Bilirubin Direct 2.9 mg/dL (0-0.2); Bilirubin Total 4.8 mg/dL (0.2-1.0); Glucose Level 96 mg/dL (74-106); Lipase 297 U/L (73-393); Potassium 3.1 mmol/L (3.5-5.1); Protein, Total 7.2 g/dL (6.4-8.2); Sodium Level 141 mmol/L (136-145)
[2018-05-20 01:23] LABS: Hematocrit 17.3 % (36.0-45.0)
[2018-05-20 02:45] LABS: Blood Morphology Comment NOTED (NOT SEEN); Platelet Estimate ADEQ
[2018-05-20 02:46] LABS: Anisocytosis 2+; Hypochromasia 1+; Macrocytosis 2+
[2018-05-20 02:48] LABS: Urine Blood NEGATIVE (NEG); Urine Glucose NEGATIVE (NEG); Urine Protein 1+ (NEG); Urine Specific Gravity 1.015 (1.005-1.030)
[2018-05-20] MEDS ORDERED: NA CHLORIDE 0.9% 250 ML ONE (02:59)
--- NOTE | 2018-05-20 03:11 | EDPHYS ---
Physician Documentation [facility] Name: Lj Lay Age: 28 yrs Sex: Female : 1990 Arrival Date: 05/19/2018 Time: 23:53 Bed 15 Private MD: ED Physician Luis Cummings HPI: 05/20 02:40 This 28 yrs old Female presents to ER via Wheelchair with complaints of GI jr8 Bleeding, Abdominal Swelling, Cough, Swelling of Lower Extremity. 02:40 Patient with history of chronic alcohol abuse and cirrhosis of the liver. Stated that jr8 she still drinks but has severely declined the amount per day. Stated that she started to have abdominal swelling and cough that started recently. Feels that she cannot breath. Has noticed dark tarry along with bright red blood on/off for past few months via rectum. Occasional Hematemesis as well . JIGMAN: 00:08 LMP 04/2018 mg2 Historical: - Allergies: 00:10 No Known Allergies; mg2 - Home Meds: 00:10 None [Active]; mg2 - PMHx: 00:10 Alcoholism; Anxiety; Bipolar disorder; Cirrhosis; Depression; Pancreatitis; liver mg2 failure; - PSHx: 00:10 None; mg2 - Immunization history:: Flu vaccine status is unknown. - Social history:: Smoking status: Patient uses tobacco products, unknown amount Patient uses alcohol, on a daily basis. - Ebola Screening: : No symptoms or risks identified at this time. ROS: 03:05 Eyes: Negative for injury, pain, redness, and discharge, ENT: Negative for injury, jr8 pain, and discharge, Neck: Negative for injury, pain, and swelling, Cardiovascular: Negative for chest pain, palpitations, and edema, Back: Negative for injury and pain, MS/Extremity: Negative for injury and deformity, Skin: Negative for injury, rash, and discoloration, Neuro: Negative for headache, weakness, numbness, tingling, and seizure. 03:05 Respiratory: Positive for cough, Negative for dyspnea on exertion, shortness of breath, sputum production, wheezing. 03:05 Abdomen/GI: Positive for nausea, abdominal distension, hematemesis, black/tarry stool, rectal bleeding. Exam: 03:05 ENT: Nares patent. No nasal discharge, no septal abnormalities noted. Tympanic jr8 membranes are normal and external auditory canals are clear. Oropharynx with no redness, swelling, or masses, exudates, or evidence of obstruction, uvula midline. Mucous membranes moist. Neck: Trachea midline, no thyromegaly or masses palpated, and no cervical lymphadenopathy. Supple, full range of motion without nuchal rigidity, or vertebral point tenderness. No Meningismus. Cardiovascular: Regular rate and rhythm with a normal S1 and S2. No gallops, murmurs, or rubs. Normal PMI, no JVD. No pulse deficits. Respiratory: Lungs have equal breath sounds bilaterally, clear to auscultation and percussion. No rales, rhonchi or wheezes noted. No increased work of breathing, no retractions or nasal flaring. Back: No spinal tenderness. No costovertebral tenderness. Full range of motion. MS/ Extremity: Pulses equal, no cyanosis. Neurovascular intact. Full, normal range of motion. Neuro: Awake and alert, GCS 15, oriented to person, place, time, and situation. Cranial nerves II-XII grossly intact. Motor strength 5/5 in all extremities. Sensory grossly intact. Cerebellar exam normal. Normal gait. 03:05 Eyes: Periorbital structures: appear normal, Pupils: equal, round, and reactive to light and accomodation, Extraocular movements: intact throughout, Conjunctiva: normal, Corneas: are normal, Sclera: icterus, is present. 03:05 Abdomen/GI: Inspection: distension, that is moderate, Bowel sounds: active, all quadrants, Palpation: soft, in all quadrants, mild abdominal tenderness, in the abdomen diffusely, mass, is not appreciated, rebound tenderness, is not appreciated, voluntary guarding, is not appreciated, involuntary guarding, is not appreciated, no appreciated organomegaly, Rectal exam: rectal tone normal, Stool: guaiac positive, black, hemorrhoid(s), external, without bleeding, without inflammation, without thrombosis, without pain, mass, is not appreciated, swelling, is not appreciated, tenderness, is not appreciated, the exam is chaperoned by the nurse, Indicators: McBurney's point is not tender, Sainz's sign is negative, Rovsing's sign is negative, Liver: tenderness, that is mild. 03:05 Skin: Appearance: Color: jaundiced. Vital Signs: 00:08 Temp 98.6(O); Weight 81.65 kg; Height 5 ft. 7 in. (170.18 cm); Pain 10/10; mg2 00:19 BP 130 / 91; Pulse 115; Resp 20; Pulse Ox 98% on R/A; ak1 01:23 BP 105 / 66; Pulse 109; Resp 18; Temp 98.6; Pulse Ox 99% on R/A; ak1 04:00 BP 104 / 62; Pulse 105; Resp 16; Temp 98(TE); Pulse Ox 98% on R/A; ak1 00:08 Body Mass Index 28.19 (81.65 kg, 170.18 cm) mg2 MDM: 00:25 Patient medically screened. jr8 03:05 Data reviewed: vital signs, nurses notes, lab test result(s), radiologic studies, plain jr8 films. Data interpreted: Pulse oximetry: on room air is 99 %. Interpretation: normal. Counseling: I had a detailed discussion with the patient and/or guardian regarding: the historical points, exam findings, and any diagnostic results supporting the discharge/admit diagnosis, lab results, radiology results, the need to transfer to another facility, [facility] does not immediately have the required specialist. ED course: [facility] hepatology and ICU physicians consulted and accepted patient . 05/20 00:11 Order name: Basic Metabolic Panel; Complete Time: 00:58 mg2 05/20 00:11 Order name: CBC with Diff; Complete Time: 02:46 mg2 05/20 00:11 Order name: Creatinine for Radiology; Complete Time: 00:52 mg2 05/20 00:11 Order name: Hepatic Function; Complete Time: 00:58 mg2 05/20 00:11 Order name: Lipase; Complete Time: 00:58 mg2 05/20 00:15 Order name: Ptt, Activated; Complete Time: 00:52 tw4 05/20 00:15 Order name: PT-INR; Complete Time: 00:52 tw4 05/20 00:15 Order name: AMMONIA; Complete Time: 00:58 tw4 05/20 00:23 Order name: ETOH Level; Complete Time: 00:58 jr8 05/20 00:24 Order name: TS jr8 05/20 00:52 Order name: Urine Dipstick--Ancillary (enter results); Complete Time: 03:10 cm6 04/13 00:52 Order name: Urine --Ancillary (enter results); Complete Time: 03:10 cm6 05/20 01:25 Order name: Manual Differential; Complete Time: 02:46 EDVT 05/20 01:29 Order name: Packed RBC Leukored -1 EDVT 05/20 00:11 Order name: IV Saline Lock; Complete Time: 00:20 mg2 05/20 00:11 Order name: Labs collected and sent; Complete Time: 00:24 mg2 05/20 00:23 Order name: XRAY Chest (1 view) jr8 Administered Medications: 03:00 Drug: Octreotide 50 mcg Route: IV; Rate: calculated rate; Site: left hand; ak1 03:52 Follow up: IV Status: Completed infusion ak1 03:00 Drug: Octreotide Infusion (50 mcg/hr) - (Octreotide 500 mcg, NS 0.9% 500 ml) Route: IV; ak1 Rate: 50 ml/hr; Site: left hand; 06:23 Follow up: IV Status: Infusion continued upon transfer ak1 Disposition: 07:14 Co-signature as Attending Physician, Luis Cummings MD I agree with the assessment and tw4 plan of care. Disposition: 05/20/18 03:10 Transfer ordered to [facility]. Diagnosis are Gastrointestinal hemorrhage, unspecified, Anemia, Alcoholic cirrhosis of liver, Ascites. - Reason for transfer: Higher level of care. - Accepting physician is Dr. Cervantes. - Condition is Fair. - Problem is new. - Symptoms have improved. Signatures: Dispatcher [employer] [facility] Talat Ling PA PA jr8 Jaida Jang RN RN ak1 Luis Cummings MD MD tw4 Ata Rajan RN RN mg2 Corrections: (The following items were deleted from the chart) 03:09 03:05 Abdomen/GI: Inspection: distension, that is moderate, Bowel sounds: active, all jr8 quadrants, Palpation: soft, in all quadrants, mild abdominal tenderness, in the abdomen diffusely, mass, is not appreciated, rebound tenderness, is not appreciated, voluntary guarding, is not appreciated, involuntary guarding, is not appreciated, no appreciated organomegaly, Indicators: McBurney's point is not tender, Sainz's sign is negative, Rovsing's sign is negative, Liver: tenderness, that is mild, jr8 03:13 03:10 05/20/2018 03:10 Transfer ordered to [facility]. Diagnosis is jr8 Gastrointestinal hemorrhage, unspecified; Anemia; Alcoholic cirrhosis of liver; Ascites. Reason for transfer: Higher level of care. Accepting physician is Leonidas Tamayo . Condition is Fair. Problem is new. Symptoms have improved. jr8 06:57 03:13 05/20/2018 03:10 Transfer ordered to [facility]. Diagnosis is ak1 Gastrointestinal hemorrhage, unspecified; Anemia; Alcoholic cirrhosis of liver; Ascites. Reason for transfer: Higher level of care. Accepting physician is Dr. Cervantes. Condition is Fair. Problem is new. Symptoms have improved. jr8
--- NOTE | 2018-05-20 03:11 | ER ---
Nurse's Notes [facility] Name: Lj Lay Age: 28 yrs Sex: Female : 1990 Arrival Date: 05/19/2018 Time: 23:53 Bed 15 Private MD: Diagnosis: Gastrointestinal hemorrhage, unspecified;Anemia;Alcoholic cirrhosis of liver;Ascites Presentation: 05/20 00:06 Presenting complaint: Patient states: patient complains of abdominal distention, pain, mg2 cough and shortness of breath for 3 days. she looks jaundiced. also reported rectal bleeding for 3 months. Transition of care: patient was not received from another setting of care. Onset of symptoms was May 17, 2018. Risk Assessment: Do you want to hurt yourself or someone else? Patient reports no desire to harm self or others. Initial Sepsis Screen: Does the patient meet any 2 criteria? No. Patient's initial sepsis screen is negative. Does the patient have a suspected source of infection? No. Patient's initial sepsis screen is negative. Care prior to arrival: None. 00:06 Method Of Arrival: Wheelchair mg2 00:06 Acuity: LAMBERT 2 mg2 Triage Assessment: 00:15 General: Appears in no apparent distress. Behavior is anxious, crying. Pain: Complains ak1 of pain in abdomen. EENT: No signs and/or symptoms were reported regarding the EENT system. Neuro: No deficits noted. Cardiovascular: No deficits noted. 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 GI: Abdomen is distended, noted to have ascites, Reports lower abdominal pain, upper abdominal pain, nausea. : No signs and/or symptoms were reported regarding the genitourinary system. Derm: Skin is jaundiced. UNHAIRER: 00:08 [facility] 04/2018 mg2 Historical: - Allergies: 00:10 No Known Allergies; mg2 - Home Meds: 00:10 None [Active]; mg2 - PMHx: 00:10 Alcoholism; Anxiety; Bipolar disorder; Cirrhosis; Depression; Pancreatitis; liver mg2 failure; - PSHx: 00:10 None; mg2 - Immunization history:: Flu vaccine status is unknown. - Social history:: Smoking status: Patient uses tobacco products, unknown amount Patient uses alcohol, on a daily basis. - Ebola Screening: : No symptoms or risks identified at this time. Screenin:17 Abuse screen: Denies threats or abuse. Denies injuries from another. Nutritional ak1 screening: No deficits noted. Tuberculosis screening: No symptoms or risk factors identified. Fall Risk None identified. Assessment: 00:19 GI: Abd is rigid X 4 quads. ak1 00:31 GI: Bowel sounds present X 4 quads. ak1 01:22 Reassessment: Patient appears in no apparent distress at this time. No changes from ak1 previously documented assessment. 03:54 Reassessment: PRB started, pt unable to tolerated at 100mL/hr infusion backed down to ak1 75mL/hr and pt tolerated well. ERP notified and verbal orders to transfuse 1 unit and transport pt to [facility]. 04:04 Reassessment: see blood transfusion flow sheet. ak1 04:25 Reassessment: Patient appears in no apparent distress at this time. No changes from ak1 previously documented assessment. Patient and/or family updated on plan of care and expected duration. Pain level reassessed. Patient is alert, oriented x 3, equal unlabored respirations, skin warm/dry/pink. 06:08 Reassessment: blood completed. waiting on EMS to transport pt. ak1 Vital Signs: 00:08 Temp 98.6(O); Weight 81.65 kg; Height 5 ft. 7 in. (170.18 cm); Pain 10/10; mg2 00:19 BP 130 / 91; Pulse 115; Resp 20; Pulse Ox 98% on R/A; ak1 01:23 BP 105 / 66; Pulse 109; Resp 18; Temp 98.6; Pulse Ox 99% on R/A; ak1 04:00 BP 104 / 62; Pulse 105; Resp 16; Temp 98(TE); Pulse Ox 98% on R/A; ak1 00:08 Body Mass Index 28.19 (81.65 kg, 170.18 cm) mg2 ED Course: 05/19 23:53 Patient arrived in ED. do 05/20 00:08 Triage completed. mg2 00:11 Arm band placed on. mg2 00:11 Inserted saline lock: 20 gauge in right antecubital area, using aseptic technique. mg2 Blood collected. 00:13 Luis Cummings MD is Attending Physician. tw4 00:15 Krenek, Jaida, RN is Primary Nurse. ak1 00:17 Patient has correct armband on for positive identification. Bed in low position. Call ak1 light in reach. Side rails up X2. Adult w/ patient. Pulse ox on. NIBP on. 00:22 Talat Ling PA is PHCP. jr8 00:48 Notified Nurse Practitioner and/or Physician Rn Perioperative of a critical lab result(s), fc hemoglobin of 5.3 and hematocrit of 17.3. 01:23 Door closed. Warm blanket given. Pillow given. Consent for blood and/or blood product ak1 transfusion explained by staff, signed by patient. 01:39 XRAY Chest (1 view) In Process Unspecified. EDMS 02:55 Inserted saline lock: 22 gauge in left wrist, using aseptic technique. ak1 04:24 No provider procedures requiring assistance completed. Patient transferred, IV remains ak1 in place. Administered Medications: 03:00 Drug: Octreotide 50 mcg Route: IV; Rate: calculated rate; Site: left hand; ak1 03:52 Follow up: IV Status: Completed infusion ak1 03:00 Drug: Octreotide Infusion (50 mcg/hr) - (Octreotide 500 mcg, NS 0.9% 500 ml) Route: IV; ak1 Rate: 50 ml/hr; Site: left hand; 06:23 Follow up: IV Status: Infusion continued upon transfer ak1 Outcome: 03:10 ER care complete, transfer ordered by . jr8 04:26 Transferred by ground EMS to [facility], Transfer form completed. ak1 X-rays sent w/ patient. Note: Report given to nurse Chanel for ICU. 04:26 Instructed on the need for transfer. 06:22 Transferred Note: report given to EMS technical healthcare consultant. ak1 06:22 Condition: stable 06:22 Instructed on 06:57 Patient left the ED. ak1 Signatures: Dispatcher [employer] EDMS Ebonie López RN RN Talat Ling PA PA jr8 Jaida Jang, RN RN ak1 Helena Palacios James, RN RN jb4 Luis Cummings MD MD tw4 Ata Rajan RN RN mg2 Corrections: (The following items were deleted from the chart) 00:30 00:06 Presenting complaint: Patient states: patient complains of abdominal distention, jb4 pain, cough and shortness of breath for 3 days. she looks jaundiced. mg2
[2018-05-20] MEDS ORDERED: NA CHLORIDE 0.9% 500 ML ONE (03:17)
[2018-05-20] MEDS ORDERED: OCTREOTIDE ACETATE 100 MCG/ML ONE (03:17)
--- NOTE | 2018-05-20 10:30 | RAD REPORT ---
EXAM DESCRIPTION: Tc Single View05/20/2018 1:38 am CLINICAL HISTORY: sob COMPARISON: January 2018 FINDINGS: An area of subsegmental atelectasis is present within the right upper lobe. The left lung appears clear. The heart is normal size
== END 2018-05-20 06:57 | disposition short-term general hospital (02) ==
LOC: ER 23:52
DX: K92.2 Gastrointestinal hemorrhage, unspecified (principal); D64.9 Anemia, unspecified; K70.31 Alcoholic cirrhosis of liver with ascites; F10.10 Alcohol abuse, uncomplicated; F41.9 Anxiety disorder, unspecified; F31.9 Bipolar disorder, unspecified; F32.9 Major depressive disorder, single episode, unspecified; Z72.0 Tobacco use
CPT/HCPCS: 36415; 71045; 80048; 80076; 80320; 81003; 81025; 82140; 83690; 85025; 85610; 85730; 86850; 86900; 86901; 96365; 96366; 96368; 99285; J2354; P9016